=== PATIENT | female | born 1935 | race Caucasian/White ===

== ENCOUNTER 2016-10-11 15:04 | Observation (INO) | payer OTHER ==
--- NOTE | 2016-10-11 15:07 | PDOC ---
History of Present Illness - General History Source: Patient, Family Exam Limitations: No Limitations - History of Present Illness Initial Comments: 10/11/16 15:27 The patient is a 81 year old female on coumadin, with a significant past medical history of hypertension, diabetes, and coronary disease, who presents to the emergency department status post a mechanical fall prior to arrival when she fell over a bag that was on the floor and hit her left forehead and injured her left thumb. She denies headache, nausea, and dizziness. The patient denies chest pain, abdominal pain, shortness of breath, lightheadedness, or palpitation. The patient denies any LOC, fever, chills, cough, visual changes. The patient denies any other bodily pain or injury. Allergies: None PCP: Dr. Steven Porter <Gely Tay - Last Filed: 10/11/16 16:05> <Rashid Forte - Last Filed: 10/11/16 18:48> - General Chief Complaint: Injury Stated Complaint: injury hit head and left wrist Time Seen by Provider: 10/11/16 15:07 Past History <Gely Tay - Last Filed: 10/11/16 16:05> - Past Medical History Anemia: No Asthma: No Cancer: No Cardiac Disorders: Yes (A FIB-CARDIOVERTED LAST YEAR,NOW IN NSR) CVA: No COPD: No CHF: No Dementia: No Diabetes: Yes ([id number], diet-controlled) GI Disorders: Yes Disorders: No HTN: Yes Hypercholesterolemia: No Liver Disease: No Seizures: No Thyroid Disease: No - Surgical History Abdominal Surgery: No Appendectomy: No Cardiac Surgery: No Cholecystectomy: No Lung Surgery: No Neurologic Surgery: No Orthopedic Surgery: No - Psycho/Social/Smoking Cessation Hx Anxiety: No Suicidal Ideation: No Smoking Status: No Smoking History: Never smoked Have you smoked in the past 12 months: No Number of Cigarettes Smoked Daily: 0 Hx Alcohol Use: No Drug/Substance Use Hx: No Substance Use Type: None Hx Substance Use Treatment: No <Rashid Forte - Last Filed: 10/11/16 18:48> - Past Medical History Allergies/Adverse Reactions: Allergies Allergy/AdvReac Type Severity Reaction Status Date / Time No Known Drug Allergies Allergy Verified 10/11/16 15:05 Home Medications: Ambulatory Orders Metformin HCl [Glucophage] 500 mg PO ACDIN 01/18/14 Omeprazole [Prilosec] 20 mg PO ACDIN 01/18/14 Triamterene/Hydrochlorothiazid [Triamterene-Hctz 37.5-25 mg Tb] 37.5 mg PO ACDIN 01/18/14 Cholecalciferol (Vitamin D3) [Vitamin D3] 2,000 unit PO ACDIN 10/22/15 Ferrous Sulfate [Feosol] 325 mg PO ACDIN 10/22/15 Metoprolol Succinate [Toprol XL -] 25 mg PO ACDIN 10/24/15 Coumadin DAILY 10/11/16 Review of Systems - Review of Systems Able to Perform ROS?: Yes Comments:: 10/11/16 15:28 CONSTITUTIONAL: Absent: fever, chills, diaphoresis, generalized weakness, malaise, loss of appetite HEENT: +Headache, +swelling to left side of forehead Absent: rhinorrhea, nasal congestion, throat pain, throat swelling, difficulty swallowing, mouth swelling, ear pain, eye pain, visual Changes CARDIOVASCULAR: Absent: chest pain, syncope, palpitations, irregular heart rate, lightheadedness , peripheral edema RESPIRATORY: Absent: cough, shortness of breath, dyspnea with exertion, orthopnea, wheezing, stridor, hemoptysis GASTROINTESTINAL: Absent: abdominal pain, abdominal distension, nausea, vomiting, diarrhea, constipation, melena, hematochezia GENITOURINARY: Absent: dysuria, frequency, urgency, hesitancy, hematuria, flank pain, genital pain MUSCULOSKELETAL: +left thumb pain Absent: joint swelling SKIN: Absent: rash, itching, pallor HEMATOLOGIC/IMMUNOLOGIC: Absent: easy bleeding, easy bruising, lymphadenopathy, frequent infections ENDOCRINE: Absent: unexplained weight gain, unexplained weight loss, heat intolerance, cold intolerance NEUROLOGIC: Absent: headache, focal weakness or paresthesias, dizziness, unsteady gait, seizure, mental status changes, bladder or bowel incontinence PSYCHIATRIC: Absent: anxiety, depression, suicidal or homicidal ideation, hallucinations. <Gely Tay - Last Filed: 10/11/16 16:05> *Physical Exam - Vital Signs Last Vital Signs Temp Pulse Resp BP Pulse Ox 98 F 77 20 139/77 96 10/11/16 15:04 10/11/16 15:04 10/11/16 15:04 10/11/16 15:04 10/11/16 15:04 - Physical Exam Comments: 10/11/16 15:28 GENERAL: Patient is awake, alert and in no acute distress. Speech is clear and appropriate. HEAD: +Left forehead hematoma, small. Atraumatic and nontender. HEENT: Pupils are equal round and reactive to light, extraocular movements are intact. The tympanic membranes are clear, no hemotympanum. No facial deformity. No facial bone tenderness or step-off. No nasal septal hematoma. The oropharynx is clear. NECK: The trachea is midline, there is no stridor. There is no midline cervical spine tenderness, full range of motion of neck. CHEST: Non-tender, no ecchymosis or abrasions. Equal chest wall expansion bilaterally. No flail segments. Lungs are clear to auscultation bilaterally. CARDIOVASCULAR: S1-S2, regular rate and rhythm. No murmurs or rubs. ABDOMEN: Soft, nontender, nondistended. Bowel sounds are normoactive. There is no abdominal or flank ecchymosis. BACK/PELVIS: There is no midline thoracic or lumbosacral spine tenderness or step-off. Pelvis is stable and nontender. EXTREMITIES: +Mild bony tenderness at the base of the left thumb with full range of motion. There is no extremity deformity or joint swelling. No focal bony tenderness throughout. 2+ distal pulses throughout. NEURO: Alert and oriented x3. Cranial nerves II through XII are intact. 5 out of 5 motor strength x4 extremities. No gross sensory deficits. [id number] is intact. No pronator drift. Gait is stable. SKIN: +Small superficial abrasion at the center of the top lip No hematomas, lacerations. PSYCH: Affect is appropriate <Gely Tay - Last Filed: 10/11/16 16:05> Heart Score/ECG Review - ECG Intrepretation Comment:: 10/11/16 15:37 Normal sinus rhythm at 72, left axis deviation, left ventricular hypertrophy, late R-wave progression, no ST changes <Rashid Forte - Last Filed: 10/11/16 18:48> ED Treatment Course - LABORATORY CBC & Chemistry Diagram: 10/11/16 15:35 10/11/16 15:35 - RADIOLOGY Radiograph Interpretation: 10/11/16 15:54 CT/HEAD CT WITHOUT CONTRAST Reported by: Dr. Gerry Rios Reviewed by: Dr. Rashid Forte Impression: No CT evidence of acute intracranial pathology <Gely Tay - Last Filed: 10/11/16 16:05> - LABORATORY CBC & Chemistry Diagram: 10/11/16 15:35 10/11/16 16:12 <Rashid Forte - Last Filed: 10/11/16 18:48> Medical Decision Making - Medical Decision Making 10/11/16 15:07 The patient is well-appearing and in no acute distress Will obtain CT of the head given her age and Coumadin use in the context of closed head injury Will obtain plain x-rays of the left thumb Will obtain labs <Rashid Forte - Last Filed: 10/11/16 18:48> *DC/Admit/Observation/Transfer - Attestations Scribe Attestion: 10/11/16 15:28 Documentation prepared by FABIOLA Watts, acting as medical records analyst for Rashid Forte MD. <Gely Tay - Last Filed: 10/11/16 16:05> - Discharge Dispostion Admit: Yes <Rashid Forte - Last Filed: 10/11/16 18:48> Diagnosis at time of Disposition: Closed head injury
[2016-10-11] MEDS ORDERED: ACETAMINOPHEN 325 MG TABLET (FP) PO ONE (15:08)
[2016-10-11] MEDS ORDERED: ERYTHROMYCIN 0.5% OPHTHALMIC OINTMENT 3.5 GM TUBE OD ONE (15:27)
[2016-10-11] MEDS ORDERED: ACETAMINOPHEN 325 MG TABLET (FP) ONE (15:37)
[2016-10-11 15:52] LABS: EOSINOPHIL 1.4 % (0-4.5); MCH 25.2 pg (25.7-33.7); MCHC 32.8 g/dl (32.0-36.0); MEAN PLT VOLUME 9.9 fl (7.5-11.1); NEUTROPHILS 65.2 % (42.8-82.8); PLATELET COUNT 225 K/MM3 (134-434); RDW 19.6 % (11.6-15.6); WHITE BLOOD COUNT 7.7 K/mm3 (4.0-10.8)
[2016-10-11 16:06] LABS: ACTIVATED PTT 49.8 SECONDS (24.0-38.9)
[2016-10-11 16:11] LABS: INR 2.6 (0.82-1.09); PROTHROMBIN TIME (PATIENT) 28.6 SEC (10.2-13.0)
[2016-10-11 16:54] LABS: ALBUMIN 3.6 g/dl (3.5-5.0); ALK PHOS 57 U/L (32-92); ANION GAP 8 (8-16); BILIRUBIN,TOTAL 0.7 mg/dl (0.2-1.0); CALCIUM 8.8 mg/dl (8.4-10.2); CO2 26 mmol/L (22-28); COCKROFT - GAULT 65.6795; CREATININE 0.9 mg/dl (0.6-1.3); GLUCOSE,RANDOM 99 mg/dl (74-106); SGOT/AST 29 U/L (10-42); SGPT/ALT 23 U/L (10-40); TOT PROT 7.2 g/dl (6.4-8.3)
[2016-10-11 21:02] VITALS: BMI 33.3
--- NOTE | 2016-10-11 21:52 | HP ---
Admitting History and Physical - Primary Care Physician PCP: Steven Porter - Admission Chief Complaint: Head trauma History of Present Illness: The patient is a 81 year old female on coumadin, with a significant past medical history of hypertension, diabetes, and coronary disease, who presents to the emergency department status post a mechanical fall prior to arrival when she fell over a bag that was on the floor and hit her left forehead and injured her left wrist and both knees. No loss of consciousness. She denies headache, nausea, and dizziness. The patient denies chest pain, abdominal pain, shortness of breath, lightheadedness, or palpitation. History Source: Patient, Family Member - Past Medical History Cardiovascular: Yes: AFIB, HTN, Hyperlipdemia ...LMP Comment: PATIENT IS AN 81 YEAR OLD ...: No - Smoking History Smoking history: Never smoked Have you smoked in the past 12 months: No Aproximately how many cigarettes per day: 0 - Alcohol/Substance Use Hx Alcohol Use: No Home Medications - Allergies Allergies/Adverse Reactions: Allergies Allergy/AdvReac Type Severity Reaction Status Date / Time No Known Drug Allergies Allergy Verified 10/11/16 15:05 - Home Medications Home Medications: Ambulatory Orders Metformin HCl [Glucophage] 500 mg PO DAILY 01/18/14 Omeprazole [Prilosec] 20 mg PO DAILY 01/18/14 Triamterene/Hydrochlorothiazid [Triamterene-Hctz 37.5-25 mg Tb] 37.5 mg PO DAILY 01/18/14 Cholecalciferol (Vitamin D3) [Vitamin D3] 2,000 unit PO DAILY 10/22/15 Ferrous Sulfate [Feosol] 325 mg PO DAILY 10/22/15 Metoprolol Succinate [Toprol XL -] 25 mg PO DAILY 10/24/15 Coumadin 8 mg DAILY 10/11/16 Diltiazem HCl [Cartia Xt] 120 mg PO DAILY 10/11/16 Losartan Potassium 50 mg PO DAILY 10/11/16 Review of Systems - Review of Systems Constitutional: reports: No Symptoms Eyes: reports: No Symptoms HENT: reports: No Symptoms Neck: reports: No Symptoms Cardiovascular: reports: No Symptoms Respiratory: reports: No Symptoms Gastrointestinal: reports: No Symptoms Genitourinary: reports: No Symptoms Musculoskeletal: reports: Joint Pain Neurological: reports: Headache Hematology/Lymphatic: reports: No Symptoms Psychiatric: reports: No Symptoms Physical Examination Vital Signs: Vital Signs Temperature 98.1 F 10/11/16 18:13 Pulse Rate 74 10/11/16 18:13 Respiratory Rate 20 10/11/16 18:13 Blood Pressure 122/68 10/11/16 18:13 O2 Sat by Pulse Oximetry (%) 97 10/11/16 18:13 Constitutional: Yes: Well Nourished, Mild Distress Eyes: Yes: Conjunctiva Clear, EOM Intact, PERRL HENT: Yes: Atraumatic, Normocephalic Neck: Yes: Supple, Trachea Midline Cardiovascular: Yes: Regular Rate and Rhythm Respiratory: Yes: Regular, CTA Bilaterally Gastrointestinal: Yes: Normal Bowel Sounds, Soft ...Rectal Exam: Yes: Deferred Musculoskeletal: Yes: Joint Swelling (left wrist) Edema: No Peripheral Pulses WNL: Yes Neurological: Yes: Alert, Oriented ...Motor Strength: WNL Psychiatric: Yes: Alert, Oriented Imaging - Results Chest X-ray: Report Reviewed X-ray: Report Reviewed Problem List - Problems (1) Closed head injury Code(s): S09.90XA - UNSPECIFIED INJURY OF HEAD, INITIAL ENCOUNTER (2) Atrial fibrillation Code(s): I48.91 - UNSPECIFIED ATRIAL FIBRILLATION (3) Hypertension Code(s): I10 - ESSENTIAL (PRIMARY) HYPERTENSION (4) Hyperlipidemia Code(s): E78.5 - HYPERLIPIDEMIA, UNSPECIFIED Assessment/Plan S/P Fall with trauma to forehead/left wrist joint and b/l Knee joints. CT Head negative for ICH. Given on coumadin will repeat CTh after 24 hrs to make sure there is no ICH. X rays of the wrist - no fracture but given left wrist swelling, will get ortho consult. Pain management and continue current management.
[2016-10-11] MEDS ORDERED: LOPERAMIDE HCL 2 MG CAPSULE PO ONE (22:30)
[2016-10-12] MEDS: ACETAMINOPHEN 325 MG TABLET (FP) PO PRN ×2 (02:51→10:14)
[2016-10-12] MEDS ORDERED: metFORMIN HCL 500 MG TABLET (FP) PO SCH (07:00)
[2016-10-12 08:04] LABS: INR 2.43 (0.82-1.09); PROTHROMBIN TIME (PATIENT) 26.7 SEC (10.2-13.0)
[2016-10-12] MEDS ORDERED: LOSARTAN POTASSIUM 50 MG TABLET (FP) PO SCH (10:00)
[2016-10-12] MEDS ORDERED: TRIAMTERENE AND HCTZ - 37.5 MG/25 MG CAPSULE PO SCH (10:00)
[2016-10-12] MEDS ORDERED: CHOLECALCIFEROL (VITAMIN D3) 1,000 UNIT TABLET (FP) PO SCH (10:00)
[2016-10-12] MEDS ORDERED: FERROUS SO4 325 MG TABLET (FP) PO SCH (10:00)
[2016-10-12] MEDS ORDERED: METOPROLOL SUCCINATE 25 MG TAB.SR.24H (FP) PO SCH (10:00)
[2016-10-12] MEDS ORDERED: PANTOPRAZOLE 20 MG TABLET (FP) PO SCH (10:00)
[2016-10-12] MEDS ORDERED: PT OWN MED DRAWER 7, Y5N ONE (10:04)
--- NOTE | 2016-10-12 21:13 | PN ---
Progress Note (short form) - Note Progress Note: C/O B/L knee pain. Denies headache or blurring of vision. Afebrile. History Source: Patient, Family Member - Past Medical History Cardiovascular: Yes: AFIB, HTN, Hyperlipdemia ...LMP Comment: PATIENT IS AN 81 YEAR OLD ...: No - Smoking History Smoking history: Never smoked Have you smoked in the past 12 months: No Aproximately how many cigarettes per day: 0 - Alcohol/Substance Use Hx Alcohol Use: No Home Medications - Allergies Allergies/Adverse Reactions: Allergies Allergy/AdvReac Type Severity Reaction Status Date / Time No Known Drug Allergies Allergy Verified 10/11/16 15:05 - Home Medications Home Medications: Ambulatory Orders Metformin HCl [Glucophage] 500 mg PO DAILY 01/18/14 Omeprazole [Prilosec] 20 mg PO DAILY 01/18/14 Triamterene/Hydrochlorothiazid [Triamterene-Hctz 37.5-25 mg Tb] 37.5 mg PO DAILY 01/18/14 Cholecalciferol (Vitamin D3) [Vitamin D3] 2,000 unit PO DAILY 10/22/15 Ferrous Sulfate [Feosol] 325 mg PO DAILY 10/22/15 Metoprolol Succinate [Toprol XL -] 25 mg PO DAILY 10/24/15 Coumadin 8 mg DAILY 10/11/16 Diltiazem HCl [Cartia Xt] 120 mg PO DAILY 10/11/16 Losartan Potassium 50 mg PO DAILY 10/11/16 Review of Systems - Review of Systems Constitutional: reports: No Symptoms Eyes: reports: No Symptoms HENT: reports: No Symptoms Neck: reports: No Symptoms Cardiovascular: reports: No Symptoms Respiratory: reports: No Symptoms Gastrointestinal: reports: No Symptoms Genitourinary: reports: No Symptoms Musculoskeletal: reports: Joint Pain Neurological: reports: Headache Hematology/Lymphatic: reports: No Symptoms Psychiatric: reports: No Symptoms Physical Examination Vital Signs: Vital Signs Period Temp Pulse Resp BP Sys/Tucker Pulse Ox Last 24 Hr 97.7 F-98.8 F 62-66 17-19 121-138/60-66 96-97 Constitutional: Yes: Well Nourished, Mild Distress Eyes: Yes: Conjunctiva Clear, EOM Intact, PERRL HENT: Yes: Atraumatic, Normocephalic Neck: Yes: Supple, Trachea Midline Cardiovascular: Yes: Regular Rate and Rhythm Respiratory: Yes: Regular, CTA Bilaterally Gastrointestinal: Yes: Normal Bowel Sounds, Soft ...Rectal Exam: Yes: Deferred Musculoskeletal: Yes: Joint Swelling (left wrist) Edema: No Peripheral Pulses WNL: Yes Neurological: Yes: Alert, Oriented ...Motor Strength: WNL Psychiatric: Yes: Alert, Oriented Imaging - Results Chest X-ray: Report Reviewed X-ray: Report Reviewed CBC, BMP 10/11/16 15:35 10/11/16 16:12 INR, PTT INR 2.43 (0.82-1.09) H 10/12/16 05:30 Problem List - Problems (1) Closed head injury Code(s): S09.90XA - UNSPECIFIED INJURY OF HEAD, INITIAL ENCOUNTER (2) Atrial fibrillation Code(s): I48.91 - UNSPECIFIED ATRIAL FIBRILLATION (3) Hypertension Code(s): I10 - ESSENTIAL (PRIMARY) HYPERTENSION (4) Hyperlipidemia Code(s): E78.5 - HYPERLIPIDEMIA, UNSPECIFIED Assessment/Plan No neuro deficit since yesterday. Seen by ortho. - no fracture. Pain management. Awaiting repeat CTH results. If negative. DC home and follow up with Dr. Porter. Problem List - Problems (1) Closed head injury Code(s): S09.90XA - UNSPECIFIED INJURY OF HEAD, INITIAL ENCOUNTER (2) Atrial fibrillation Code(s): I48.91 - UNSPECIFIED ATRIAL FIBRILLATION (3) Hypertension Code(s): I10 - ESSENTIAL (PRIMARY) HYPERTENSION (4) Hyperlipidemia Code(s): E78.5 - HYPERLIPIDEMIA, UNSPECIFIED
--- NOTE | 2016-10-12 21:17 | DS ---
Physical Examination Vital Signs: Vital Signs Temperature 98.8 F 10/12/16 14:14 Pulse Rate 62 10/12/16 14:14 Respiratory Rate 18 10/12/16 14:14 Blood Pressure 122/60 10/12/16 14:14 O2 Sat by Pulse Oximetry (%) 97 10/12/16 14:14 Constitutional: Yes: Well Nourished, No Distress Eyes: Yes: Conjunctiva Clear, EOM Intact, PERRL HENT: Yes: Atraumatic, Normocephalic Neck: Yes: Supple, Trachea Midline Cardiovascular: Yes: Regular Rate and Rhythm Respiratory: Yes: Regular, CTA Bilaterally Gastrointestinal: Yes: Normal Bowel Sounds, Soft Musculoskeletal: Yes: Back Pain, Joint Stiffness, Joint Swelling Discharge Summary Reason For Visit: CLOSED HEAD INJURY Current Active Problems Atrial fibrillation (Acute) Closed head injury (Acute) Hyperlipidemia (Acute) Hypertension (Acute) Hospital Course: Patient admitted s/p fall with trauma to head, left wrist and b/l knee joints. No LOC. CTH negative for ICH. X rays of the joints negative for fracture. Patient stable to be discharged. To follow up with Dr. love in 2-3 days to have a neuro check. Patient to resume coumadin same dose. Condition: Good - Instructions Disposition: HOME - Home Medications Comprehensive Discharge Medication List: Ambulatory Orders Metformin HCl [Glucophage] 500 mg PO DAILY 01/18/14 Omeprazole [Prilosec] 20 mg PO DAILY 01/18/14 Triamterene/Hydrochlorothiazid [Triamterene-Hctz 37.5-25 mg Tb] 37.5 mg PO DAILY 01/18/14 Cholecalciferol (Vitamin D3) [Vitamin D3] 2,000 unit PO DAILY 10/22/15 Ferrous Sulfate [Feosol] 325 mg PO DAILY 10/22/15 Metoprolol Succinate [Toprol XL -] 25 mg PO DAILY 10/24/15 Coumadin 8 mg DAILY 10/11/16 Diltiazem HCl [Cartia Xt] 120 mg PO DAILY 10/11/16 Losartan Potassium 50 mg PO DAILY 10/11/16
[2016-10-13 06:49] VITALS: BP 96/53; PULSE 77; TEMP 97.8
--- NOTE | 2016-10-14 09:58 | EKG ---
Test Reason : Blood Pressure : / mmHG Vent. Rate : 072 BPM Atrial Rate : 072 BPM P-R Int : 216 ms QRS Dur : 104 ms QT Int : 412 ms P-R-T Axes : 004 -30 -38 degrees QTc Int : 451 ms POOR DATA QUALITY, INTERPRETATION MAY BE ADVERSELY AFFECTED SINUS RHYTHM WITH 1ST DEGREE A-V BLOCK LEFT AXIS DEVIATION MINIMAL VOLTAGE CRITERIA FOR LVH, MAY BE NORMAL VARIANT SEPTAL INFARCT , AGE UNDETERMINED WHEN COMPARED WITH ECG OF 03-SEP-2012 10:03, INVERTED T WAVES HAVE REPLACED NONSPECIFIC T WAVE ABNORMALITY IN INFERIOR LEADS NONSPECIFIC T WAVE ABNORMALITY, IMPROVED IN LATERAL LEADS Confirmed by MD AMERICA, SHELBIE ([id number]) on 10/14/2016 9:58:02 AM Referred By: KIT Confirmed By:SHELBIE CROSS MD
== END 2016-10-12 22:00 | disposition home or self-care (01) ==
LOC: FER 15:04 → FM/S 17:23 → INTOOBSV 17:23 → FM/S 17:32 → UNDOADMOB 17:32 → FER 20:25
PROVIDERS: ADMIT Internal Medicine Geriatric Medicine; ATTEND Internal Medicine Geriatric Medicine
DX: S09.90XA Unspecified injury of head, initial encounter (principal); I48.91 Unspecified atrial fibrillation; I10 Essential (primary) hypertension; E78.5 Hyperlipidemia, unspecified; Z79.01 Long term (current) use of anticoagulants; W01.10XA Fall on same level from slipping, tripping and stumbling with subsequent striking against unspecified object, initial encounter; Y93.01 Activity, walking, marching and hiking; Y92.9 Unspecified place or not applicable
CPT/HCPCS: 36415; 70450-TC; 73110-TC-LT; 73130-TC-LT; 73560-TC-LT; 73560-TC-RT; 80053; 85025; 85610; 85730; 93005; 99283-25; 99285-25; G0378

== ENCOUNTER 2020-06-25 05:44 | Inpatient (IN) | payer OTHER ==
[2020-06-25 08:30] LABS: BASO % 0.7 % (0-2.0); EOS % 0.2 % (0-4.5); HEMATOCRIT 29.5 % (32.4-45.2); HEMOGLOBIN 9.1 GM/dL (10.7-15.3); LYMPH % 16.1 % (8-40); MCH 20.6 pg (25.7-33.7); MCHC 30.9 g/dl (32.0-36.0); MEAN CELL VOLUME 66.8 fl (80-96); MEAN PLT VOLUME 8.8 fl (7.5-11.1); MONO % 3.3 % (3.8-10.2); NEUT % 79.7 % (42.8-82.8); PLATELET COUNT 283 K/MM3 (134-434); RBC 4.42 M/mm3 (3.60-5.2); RDW 20.3 % (11.6-15.6); WHITE BLOOD COUNT 6.3 K/mm3 (4.0-10.0)
[2020-06-25 08:35] LABS: PROTHROMBIN TIME (PATIENT) 52.2 SEC (9.7-13.0)
[2020-06-25 08:38] LABS: CHLORIDE 106 mmol/L (98-107); SODIUM 138 mmol/L (136-145)
[2020-06-25 08:41] LABS: ALBUMIN 3.3 g/dl (3.4-5.0); ANION GAP 8 MMOL/L (8-16); BLOOD UREA NITROGEN 24.6 mg/dL (7-18); CALCIUM 8.5 mg/dL (8.5-10.1); CO2 25 mmol/L (21-32); GLUCOSE,RANDOM 120 mg/dL (74-106); LIPASE 128 U/L (73-393)
[2020-06-25 08:44] LABS: CREATININE 1.2 mg/dL (0.55-1.3); SGOT/AST 28 U/L (15-37); SGPT/ALT 26 U/L (13-61)
[2020-06-25 08:46] LABS: BILIRUBIN,TOTAL 0.8 mg/dL (0.2-1); TOT PROT 7.2 g/dl (6.4-8.2)
[2020-06-25 08:47] LABS: ALK PHOS 71 U/L (45-117)
[2020-06-25 08:48] LABS: N-TERMINAL BNP 18847.9 pg/ml (5-450)
[2020-06-25 09:52] LABS: INR 4.43 (0.83-1.09)
[2020-06-25] MEDS ORDERED: FUROSEMIDE 40 MG/4 ML INJECTABLE VIAL IVPUSH ONE (10:33)
[2020-06-25] MEDS ORDERED: METOPROLOL TARTRATE 5 MG/5 ML VIAL IVPUSH ONE (10:35)
[2020-06-25 11:20] LABS: RETICULOCYTES 1.23 % (0.5-1.5)
[2020-06-25 11:31] LABS: IRON SERUM 19 ug/dL (50-175); TOTAL IRON BINDING CAPACITY 494 ug/dL (250-450)
[2020-06-25 11:58] LABS: ANISOCYTOSIS 1+; OVALOCYTE 1+; TARGET CELLS 1+
[2020-06-25] MEDS: metoPROLOL SUCCINATE 25 MG TAB.SR.24H (FP) PO SCH (22:13)
[2020-06-26 00:48] VITALS: BMI 30.9
[2020-06-26 08:14] LABS: ACTIVATED PTT 39.4 SECONDS (25.2-36.5)
[2020-06-26 08:22] LABS: ALBUMIN 3.1 g/dl (3.4-5.0); BILIRUBIN,TOTAL 0.9 mg/dl (0.2-1); CALCIUM 8.4 mg/dl (8.5-10); CREATININE 1.1 mg/dl (0.55-1.3); MAGNESIUM 1.3 mg/dL (1.8-2.4); PHOSPHOROUS 4.2 mg/dl (2.5-4.9)
[2020-06-26 08:33] LABS: INR 4.96 (0.82-1.09)
[2020-06-26] MEDS: LOSARTAN POTASSIUM 50 MG TABLET PO SCH (09:04)
[2020-06-26] MEDS: metoPROLOL SUCCINATE 25 MG TAB.SR.24H (FP) PO SCH ×2 (09:04→23:00)
[2020-06-26] MEDS: CHOLECALCIFEROL (VIT D3) 1,000 UNIT (25 MCG) TABLET PO SCH (09:04)
[2020-06-26] MEDS: PANTOPRAZOLE 20 MG TABLET PO SCH (09:04)
[2020-06-26] MEDS: FUROSEMIDE 40 MG/4 ML INJECTABLE VIAL IVPUSH SCH (09:04)
[2020-06-26 09:13] LABS: HEMATOCRIT 29.8 % (32.4-45.2); MCH 20.8 pg (25.7-33.7); MCHC 30.4 g/dl (32.0-36.0); MEAN CELL VOLUME 68.4 fl (80-96); MEAN PLT VOLUME 8.2 fl (7.5-11.1); PLATELET COUNT 242 K/MM3 (134-434); RBC 4.35 M/mm3 (3.60-5.2); RDW 19.1 % (11.6-15.6); WHITE BLOOD COUNT 5.3 K/mm3 (4.0-10.8)
[2020-06-26 09:17] LABS: ADD RBC MORPHOLOGY YES
[2020-06-26] MEDS ORDERED: MAGNESIUM SULF 50% (8.12 MEQ/2 ML-1 GM VIAL) IVPB ONE (09:28)
[2020-06-26] MEDS ORDERED: POTASSIUM CHLORIDE TABS 20 MEQ TABLET.ER (FP) PO ONE (09:30)
[2020-06-26] MEDS ORDERED: MAGNESIUM SULFATE IN WATER 2 GM/50 ML IVPB IVPB ONE (09:45)
[2020-06-26 09:54] LABS: ANISOCYTOSIS 2+; PLATELET ESTIMATE ADEQUATE; TARGET CELLS 1+
[2020-06-26] MEDS ORDERED: metoPROLOL SUCCINATE 25 MG TAB.SR.24H (FP) PO SCH (10:00)
[2020-06-26] MEDS: INSULIN SLIDING SCALE (NOVOLOG) 1 VIAL SQ SCH (23:00)
[2020-06-27 08:20] LABS: BASO % 0.3 % (0-2.0); EOS % 2.4 % (0-4.5); HEMATOCRIT 30.9 % (32.4-45.2); HEMOGLOBIN 9.5 GM/dl (10.7-15.3); LYMPH % 28.1 % (8-40); MCH 20.9 pg (25.7-33.7); MCHC 30.7 g/dl (32.0-36.0); MEAN CELL VOLUME 68.2 fl (80-96); MEAN PLT VOLUME 9.2 fl (7.5-11.1); NEUT % 60.2 % (42.8-82.8); PLATELET COUNT 258 K/MM3 (134-434); RBC 4.53 M/mm3 (3.60-5.2); RDW 19.1 % (11.6-15.6); WHITE BLOOD COUNT 5.4 K/mm3 (4.0-10.8)
[2020-06-27 08:29] LABS: ALBUMIN 3.2 g/dl (3.4-5.0); BILIRUBIN,TOTAL 1.1 mg/dl (0.2-1); CALCIUM 8.5 mg/dl (8.5-10); CREATININE 1.1 mg/dl (0.55-1.3); MAGNESIUM 1.5 mg/dL (1.8-2.4); TOT PROT 6.3 g/dl (6.4-8.2)
[2020-06-27] MEDS: PANTOPRAZOLE 20 MG TABLET PO SCH (10:53)
[2020-06-27] MEDS: CHOLECALCIFEROL (VIT D3) 1,000 UNIT (25 MCG) TABLET PO SCH (10:53)
[2020-06-27] MEDS: metoPROLOL SUCCINATE 25 MG TAB.SR.24H (FP) PO SCH ×2 (10:53→21:16)
[2020-06-27] MEDS: LOSARTAN POTASSIUM 50 MG TABLET PO SCH (10:53)
[2020-06-27] MEDS: FUROSEMIDE 40 MG/4 ML INJECTABLE VIAL IVPUSH SCH (10:54)
[2020-06-27 11:43] LABS: INR 3.46 (0.82-1.09); PROTHROMBIN TIME (PATIENT) 35.7 SEC (10.2-13.0)
[2020-06-27] MEDS ORDERED: MAGNESIUM SULF 50% (8.12 MEQ/2 ML-1 GM VIAL) IVPB ONE (13:39)
[2020-06-27] MEDS ORDERED: MAGNESIUM SULFATE IN WATER 2 GM/50 ML IVPB IVPB ONE (14:15)
[2020-06-27] MEDS: INSULIN SLIDING SCALE (NOVOLOG) 1 VIAL SQ SCH ×2 (15:10→22:35)
[2020-06-28] MEDS: INSULIN SLIDING SCALE (NOVOLOG) 1 VIAL SQ SCH ×4 (06:35→21:17)
[2020-06-28 08:58] LABS: INR 2.16 (0.82-1.09)
[2020-06-28 09:00] LABS: CALCIUM 9.1 mg/dl (8.5-10); MAGNESIUM 1.4 mg/dL (1.8-2.4)
[2020-06-28] MEDS: FUROSEMIDE 40 MG/4 ML INJECTABLE VIAL IVPUSH SCH (09:18)
[2020-06-28] MEDS: CHOLECALCIFEROL (VIT D3) 1,000 UNIT (25 MCG) TABLET PO SCH (09:19)
[2020-06-28] MEDS: PANTOPRAZOLE 20 MG TABLET PO SCH (09:19)
[2020-06-28] MEDS: metoPROLOL SUCCINATE 25 MG TAB.SR.24H (FP) PO SCH (09:19)
[2020-06-28] MEDS: LOSARTAN POTASSIUM 50 MG TABLET PO SCH (09:19)
[2020-06-28] MEDS: POLYETHYLENE GLYCOL 3350 119 GM BTL PO SCH ×2 (09:20→21:25)
[2020-06-28] MEDS ORDERED: PATIENT'S OWN MEDICATION (NON-FORMULARY) (Warfarin Sodium [Warfarin Sodium] 4 MG Tablet) PO SCH (10:30)
[2020-06-28] MEDS: MAGNESIUM OXIDE 400 MG TABLET (FP) PO SCH ×2 (11:51→21:17)
[2020-06-28] MEDS ORDERED: WARFARIN NA 5 MG, WARFARIN NA 3 MG PO SCH (18:00)
[2020-06-28] MEDS ORDERED: WARFARIN NA 5 MG TABLET PO SCH (18:00)
[2020-06-28] MEDS ORDERED: POTASSIUM CHLORIDE TABS 20 MEQ TABLET.ER (FP) PO ONE ×2 (22:22→22:45)
[2020-06-29] MEDS: INSULIN SLIDING SCALE (NOVOLOG) 1 VIAL SQ SCH ×4 (06:22→21:12)
[2020-06-29 08:01] LABS: BASO % 0.1 % (0-2.0); HEMATOCRIT 30.6 % (32.4-45.2); HEMOGLOBIN 9.3 GM/dl (10.7-15.3); LYMPH % 24.4 % (8-40); MCH 20.8 pg (25.7-33.7); MCHC 30.5 g/dl (32.0-36.0); MEAN CELL VOLUME 68.2 fl (80-96); MEAN PLT VOLUME 8.5 fl (7.5-11.1); MONO % 8.7 % (3.8-10.2); NEUT % 64.8 % (42.8-82.8); PLATELET COUNT 231 K/MM3 (134-434); RBC 4.49 M/mm3 (3.60-5.2); WHITE BLOOD COUNT 5.8 K/mm3 (4.0-10.8)
[2020-06-29 08:11] LABS: ADD RBC MORPHOLOGY YES
[2020-06-29 08:17] LABS: ALBUMIN 3.1 g/dl (3.4-5.0); CALCIUM 8.3 mg/dl (8.5-10); CREATININE 0.9 mg/dl (0.55-1.3); MAGNESIUM 1.4 mg/dL (1.8-2.4); TOT PROT 6.2 g/dl (6.4-8.2)
[2020-06-29 08:32] LABS: INR 1.65 (0.82-1.09); PROTHROMBIN TIME (PATIENT) 17.9 SEC (10.2-13.0)
[2020-06-29] MEDS: PANTOPRAZOLE 20 MG TABLET PO SCH (09:31)
[2020-06-29] MEDS: FUROSEMIDE 40 MG/4 ML INJECTABLE VIAL IVPUSH SCH (09:31)
[2020-06-29] MEDS: MAGNESIUM OXIDE 400 MG TABLET (FP) PO SCH (09:31)
[2020-06-29] MEDS: POLYETHYLENE GLYCOL 3350 119 GM BTL PO SCH ×2 (09:31→21:09)
[2020-06-29] MEDS: CHOLECALCIFEROL (VIT D3) 1,000 UNIT (25 MCG) TABLET PO SCH (09:31)
[2020-06-29 09:56] LABS: ANISOCYTOSIS 1+
[2020-06-29] MEDS ORDERED: POTASSIUM CHLORIDE TABS 20 MEQ TABLET.ER (FP) PO ONE (11:45)
[2020-06-29] MEDS: MAGNESIUM 2GM/50ML STERILE WATER IVPB IVPB SCH ×2 (14:01→16:00)
[2020-06-29] MEDS ORDERED: WARFARIN NA 5 MG, WARFARIN NA 3 MG PO SCH (18:00)
[2020-06-29] MEDS ORDERED: WARFARIN NA 2 MG TABLET PO SCH (18:00)
[2020-06-29] MEDS ORDERED: WARFARIN NA 5 MG TABLET PO SCH (18:00)
[2020-06-29] MEDS ORDERED: WARFARIN NA 5 MG TABLET ONE (18:18)
[2020-06-29] MEDS ORDERED: WARFARIN NA 3 MG TABLET ONE (18:18)
[2020-06-30] MEDS ORDERED: FUROSEMIDE 40 MG TABLET (FP) PO SCH (06:00)
[2020-06-30] MEDS: INSULIN SLIDING SCALE (NOVOLOG) 1 VIAL SQ SCH ×2 (06:10→12:41)
[2020-06-30 06:14] VITALS: BP 116/72; PULSE 69; TEMP 97.9
[2020-06-30 08:26] LABS: BASO % 1.2 % (0-2.0); HEMATOCRIT 30.7 % (32.4-45.2); HEMOGLOBIN 9.4 GM/dl (10.7-15.3); LYMPH % 21.2 % (8-40); MCH 20.6 pg (25.7-33.7); MCHC 30.6 g/dl (32.0-36.0); MEAN CELL VOLUME 67.3 fl (80-96); MEAN PLT VOLUME 8.4 fl (7.5-11.1); MONO % 7.4 % (3.8-10.2); NEUT % 67.2 % (42.8-82.8); PLATELET COUNT 226 K/MM3 (134-434); RBC 4.57 M/mm3 (3.60-5.2); RDW 19.2 % (11.6-15.6); WHITE BLOOD COUNT 5.7 K/mm3 (4.0-10.8)
[2020-06-30 08:41] LABS: ALBUMIN 3.2 g/dl (3.4-5.0); CALCIUM 8.5 mg/dl (8.5-10); MAGNESIUM 2.3 mg/dL (1.8-2.4); TOT PROT 6.3 g/dl (6.4-8.2)
[2020-06-30 08:49] LABS: INR 1.43 (0.82-1.09); PROTHROMBIN TIME (PATIENT) 15.6 SEC (10.2-13.0)
[2020-06-30] MEDS: CHOLECALCIFEROL (VIT D3) 1,000 UNIT (25 MCG) TABLET PO SCH (09:54)
[2020-06-30] MEDS: PANTOPRAZOLE 20 MG TABLET PO SCH (09:55)
[2020-06-30] MEDS: POLYETHYLENE GLYCOL 3350 119 GM BTL PO SCH (09:56)
== END 2020-06-30 13:00 | disposition home or self-care (01) | DRG 292 ==
LOC: JER 05:44 → JERBED 09:31 → FM/S 21:25
PROVIDERS: ATTEND Nurse Practitioner Family
DX: I11.0 Hypertensive heart disease with heart failure (principal); I47.2 Ventricular tachycardia; D50.9 Iron deficiency anemia, unspecified; I50.23 Acute on chronic systolic (congestive) heart failure; I48.91 Unspecified atrial fibrillation; I25.10 Atherosclerotic heart disease of native coronary artery without angina pectoris; E78.5 Hyperlipidemia, unspecified; E11.9 Type 2 diabetes mellitus without complications; E83.42 Hypomagnesemia; I27.20 Pulmonary hypertension, unspecified; I42.9 Cardiomyopathy, unspecified; K21.9 Gastro-esophageal reflux disease without esophagitis; E87.6 Hypokalemia
CPT/HCPCS: 36415; 71045-TC-FY; 73610-TC-LT-FY; 73630-TC-LT; 80048; 80053; 82272; 82550; 82728; 82962; 83540; 83550; 83615; 83690; 83735; 83880; 84100; 84443; 84484; 85025; 85045; 85610; 85730; 86140; 93005; 93010; 93306-TC; 99285-25; C9803; U0003

== ENCOUNTER 2020-08-27 09:06 | Emergency (ER) | payer OTHER ==
[2020-08-27 09:44] VITALS: TEMP 98; BMI 29.9
[2020-08-27 10:43] LABS: BASO % 0.4 % (0-2.0); HEMOGLOBIN 9.7 GM/dl (10.7-15.3); MCH 21.6 pg (25.7-33.7)
[2020-08-27 10:50] LABS: HEMATOCRIT 31.9 % (32.4-45.2); LYMPH % 15.8 % (8-40); MCHC 30.5 g/dl (32.0-36.0); MEAN PLT VOLUME 9.3 fl (7.5-11.1); MONO % 7.3 % (3.8-10.2); NEUT % 74.5 % (42.8-82.8); PLATELET COUNT 260 K/MM3 (134-434); RDW 23.8 % (11.6-15.6); WHITE BLOOD COUNT 5.8 K/mm3 (4.0-10.8)
[2020-08-27 10:52] LABS: ADD RBC MORPHOLOGY YES
[2020-08-27 10:52] LABS: INR 2.67 (0.82-1.09)
[2020-08-27 10:55] LABS: ALBUMIN 3.1 g/dl (3.4-5.0); CALCIUM 8.6 mg/dl (8.5-10); MAGNESIUM 1.2 mg/dL (1.8-2.4); POTASSIUM 3.3 mmol/L (3.5-5.1); TOT PROT 6.4 g/dl (6.4-8.2)
[2020-08-27] MEDS ORDERED: MAGNESIUM SULF 50% (8.12 MEQ/2 ML-1 GM VIAL) IVPB ONE (11:00)
[2020-08-27] MEDS ORDERED: POTASSIUM CHLORIDE TABS 20 MEQ TABLET.ER (FP) PO ONE ×2 (11:00→11:17)
[2020-08-27] MEDS ORDERED: MAGNESIUM SULF 50% (8.12 MEQ/2 ML-1 GM VIAL) ONE (11:17)
[2020-08-27 12:15] LABS: N-TERMINAL BNP 19186.8 pg/ml (5-450)
[2020-08-27 12:18] LABS: VENOUS BASE EXCESS 4.1 mmol/L (-2-2); VENOUS O2 SATURATION 69.8 % (70-80); VENOUS PCO2 48.4 mmHg (38-52); VENOUS PH 7.404 (7.310-7.410)
[2020-08-27 12:28] VITALS: BP 115/74; PULSE 94
[2020-08-27] MEDS ORDERED: FUROSEMIDE 40 MG/4 ML INJECTABLE VIAL IVPUSH ONE (13:18)
[2020-08-27] MEDS ORDERED: FUROSEMIDE 40 MG/4 ML INJECTABLE VIAL ONE (13:22)
[2020-08-27 13:51] LABS: ANISOCYTOSIS 1+
== END 2020-08-27 16:02 | disposition home or self-care (01) ==
LOC: FER 09:06
PROC: 3E033NZ Introduction of Analgesics, Hypnotics, Sedatives into Peripheral Vein, Percutaneous Approach (ICD-10-PCS; principal; 2020-08-27)
PROC: 3E033GC Introduction of Other Therapeutic Substance into Peripheral Vein, Percutaneous Approach (ICD-10-PCS; 2020-08-27)
DX: R06.02 Shortness of breath (principal); I50.9 Heart failure, unspecified
CPT/HCPCS: 36415; 71046-TC-FY; 80053; 82550; 82803; 83735; 83880; 84484; 85025; 85610; 93005; 99285-25

== ENCOUNTER 2020-10-13 18:06 | Emergency (ER) | payer OTHER ==
[2020-10-13 18:23] VITALS: BP 124/65; PULSE 89; TEMP 97.8; BMI 27.8
[2020-10-13 20:05] LABS: INR 2.44 (0.82-1.09); PROTHROMBIN TIME (PATIENT) 25.8 SEC (10.2-13.0)
== END 2020-10-13 20:15 | disposition home or self-care (01) ==
LOC: FER 18:06
DX: M25.562 Pain in left knee (principal)
CPT/HCPCS: 36415; 85610; 93971-TC; 99284-25

== ENCOUNTER 2020-10-31 08:22 | Inpatient (IN) | payer OTHER ==
[2020-10-31 09:30] LABS: ACTIVATED PTT 40.6 SECONDS (25.2-36.5)
[2020-10-31 09:34] LABS: INR 5.26 (0.82-1.09); PROTHROMBIN TIME (PATIENT) 52.8 SEC (10.2-13.0)
[2020-10-31 09:34] LABS: BASO % 2.4 % (0-2.0); EOS % 0.1 % (0-4.5); HEMATOCRIT 33.9 % (32.4-45.2); HEMOGLOBIN 10.4 GM/dl (10.7-15.3); LYMPH % 14.6 % (8-40); MCH 21.9 pg (25.7-33.7); MCHC 30.9 g/dl (32.0-36.0); MEAN CELL VOLUME 70.8 fl (80-96); MEAN PLT VOLUME 9.6 fl (7.5-11.1); MONO % 3.9 % (3.8-10.2); PLATELET COUNT 284 K/MM3 (134-434); RBC 4.78 M/mm3 (3.60-5.2); RDW 20.7 % (11.6-15.6)
[2020-10-31 09:35] LABS: ALBUMIN 3.4 g/dl (3.4-5.0); ALK PHOS 72 U/L (45-117); ANION GAP 8 MMOL/L (8-16); BILIRUBIN,TOTAL 0.8 mg/dl (0.2-1); CHLORIDE 108 mmol/L (98-107); CO2 21 mmol/L (21-32); CREATININE 0.9 mg/dl (0.55-1.3); GLUCOSE,RANDOM 130 mg/dl (74-106); MAGNESIUM 1.5 mg/dL (1.8-2.4); SGOT/AST 43 U/L (15-37); SGPT/ALT 25 U/L (13-61); SODIUM 137 mmol/L (136-145); TOT PROT 7.2 g/dl (6.4-8.2)
[2020-10-31 09:36] LABS: ADD RBC MORPHOLOGY YES
[2020-10-31] MEDS ORDERED: MAGNESIUM SULF 50% (8.12 MEQ/2 ML-1 GM VIAL) IVPB ONE (09:49)
[2020-10-31] MEDS ORDERED: MAGNESIUM 1GM/D5W - 2 GM/200 ML IVPB IVPB ONE (09:55)
[2020-10-31] MEDS ORDERED: FUROSEMIDE 40 MG/4 ML INJECTABLE VIAL IVPUSH ONE (10:09)
[2020-10-31] MEDS ORDERED: FUROSEMIDE 40 MG/4 ML INJECTABLE VIAL ONE (10:10)
[2020-10-31 10:30] LABS: ANISOCYTOSIS 3+
[2020-10-31 10:31] LABS: PLATELET ESTIMATE ADEQUATE
[2020-10-31 10:40] LABS: N-TERMINAL BNP 17389.4 pg/ml (5-450)
[2020-10-31 14:29] VITALS: BMI 28.7
[2020-10-31] MEDS: INSULIN (NOVOLOG) ASPART 100 UNITS/ML 10ML VIAL SQ SCH ×2 (16:50→22:58)
[2020-11-01] MEDS: INSULIN (NOVOLOG) ASPART 100 UNITS/ML 10ML VIAL SQ SCH ×4 (07:11→21:55)
[2020-11-01 08:21] LABS: ALBUMIN 3.1 g/dl (3.4-5.0); BILIRUBIN,TOTAL 0.8 mg/dl (0.2-1); CALCIUM 8.8 mg/dl (8.5-10); CREATININE 0.9 mg/dl (0.55-1.3); MAGNESIUM 1.7 mg/dL (1.8-2.4); TOT PROT 6.4 g/dl (6.4-8.2)
[2020-11-01 08:25] LABS: BASO % 0.5 % (0-2.0); EOS % 2.3 % (0-4.5); HEMATOCRIT 32.1 % (32.4-45.2); HEMOGLOBIN 9.9 GM/dl (10.7-15.3); MCH 22.1 pg (25.7-33.7); MCHC 30.9 g/dl (32.0-36.0); MEAN CELL VOLUME 71.4 fl (80-96); MEAN PLT VOLUME 9.3 fl (7.5-11.1); MONO % 8.8 % (3.8-10.2); NEUT % 67.4 % (42.8-82.8); PLATELET COUNT 249 K/MM3 (134-434); RBC 4.49 M/mm3 (3.60-5.2); RDW 20.9 % (11.6-15.6); WHITE BLOOD COUNT 5.4 K/mm3 (4.0-10.8)
[2020-11-01] MEDS: ENOXAPARIN NA (PORCINE) 40 MG/0.4 ML DISP.SYRIN SQ SCH (09:30)
[2020-11-01] MEDS: FUROSEMIDE 40 MG/4 ML INJECTABLE VIAL IVPUSH SCH (09:30)
[2020-11-01] MEDS: PANTOPRAZOLE 20 MG TABLET PO SCH (09:31)
[2020-11-01] MEDS ORDERED: MAGNESIUM SULF 50% (8.12 MEQ/2 ML-1 GM VIAL) IVPB ONE (09:55)
[2020-11-01] MEDS ORDERED: PATIENT'S OWN MEDICATION (NON-FORMULARY) (Omeprazole Pediatric Solution 20 MG Capsule.Dr) PO SCH (10:00)
[2020-11-01] MEDS ORDERED: MAGNESIUM SULFATE IN WATER 2 GM/50 ML IVPB IVPB ONE (10:15)
[2020-11-01 11:13] LABS: INR 4.81 (0.82-1.09); PROTHROMBIN TIME (PATIENT) 48.6 SEC (10.2-13.0)
[2020-11-01] MEDS ORDERED: FERROUS SO4 325 MG TABLET (FP) PO SCH (12:15)
[2020-11-01] MEDS ORDERED: cefTRIAXone SODIUM 1 GM VIAL ONE (14:39)
[2020-11-01] MEDS ORDERED: DEXTROSE 5%-WATER - 50 ML IVPB ONE (14:39)
[2020-11-01] MEDS ORDERED: CEFTRIAXONE 1 GM in SODIUM CHLORIDE 50 ML IVPB SCH (14:43)
[2020-11-01] MEDS ORDERED: AZITHROMYCIN IVPB 500 MG in SODIUM CHLORIDE 250 ML IVPB ONE (14:45)
[2020-11-01] MEDS: AZITHROMYCIN IVPB 500 MG/250 ML BAG IVPB ONE ×2 (14:46→14:47)
[2020-11-01] MEDS: CEFTRIAXONE 1 GM in DEXTROSE 5%-WATER - 50 ML IVPB SCH ×2 (14:47→14:54)
[2020-11-01] MEDS: CEFTRIAXONE 1 GM in SODIUM CHLORIDE 50 ML IVPB SCH (14:52)
[2020-11-01] MEDS: FERROUS SO4 325 MG TABLET (FP) PO SCH (21:56)
[2020-11-02] MEDS: INSULIN (NOVOLOG) ASPART 100 UNITS/ML 10ML VIAL SQ SCH ×3 (06:28→21:51)
[2020-11-02] MEDS ORDERED: cefTRIAXone SODIUM 1 GM VIAL ONE (08:51)
[2020-11-02] MEDS ORDERED: SODIUM CHLORIDE 50 ML IVPB ONE (08:51)
[2020-11-02] MEDS: PANTOPRAZOLE 20 MG TABLET PO SCH (09:05)
[2020-11-02] MEDS: FUROSEMIDE 40 MG/4 ML INJECTABLE VIAL IVPUSH SCH (09:05)
[2020-11-02] MEDS: FERROUS SO4 325 MG TABLET (FP) PO SCH ×2 (09:05→16:42)
[2020-11-02] MEDS: CEFTRIAXONE 1 GM in SODIUM CHLORIDE 50 ML IVPB SCH (09:05)
[2020-11-02] MEDS: ENOXAPARIN NA (PORCINE) 40 MG/0.4 ML DISP.SYRIN SQ SCH (09:06)
[2020-11-02] MEDS ORDERED: AZITHROMYCIN IVPB 250 MG in SODIUM CHLORIDE 250 ML IVPB SCH (10:00)
[2020-11-02 10:36] LABS: INR 3.35 (0.82-1.09); PROTHROMBIN TIME (PATIENT) 34.7 SEC (10.2-13.0)
[2020-11-02 10:39] LABS: CALCIUM 8.5 mg/dl (8.5-10); MAGNESIUM 1.9 mg/dL (1.8-2.4)
[2020-11-03] MEDS: INSULIN (NOVOLOG) ASPART 100 UNITS/ML 10ML VIAL SQ SCH (06:36)
[2020-11-03] MEDS: FERROUS SO4 325 MG TABLET (FP) PO SCH (08:23)
[2020-11-03 08:26] LABS: INR 2.59 (0.82-1.09); PROTHROMBIN TIME (PATIENT) 27.3 SEC (10.2-13.0)
[2020-11-03] MEDS ORDERED: cefTRIAXone SODIUM 1 GM VIAL ONE (09:10)
[2020-11-03] MEDS ORDERED: PT OWN MED DRAWER 7, Y5N ONE (09:10)
[2020-11-03] MEDS ORDERED: SODIUM CHLORIDE 50 ML IVPB ONE (09:11)
[2020-11-03] MEDS: ENOXAPARIN NA (PORCINE) 40 MG/0.4 ML DISP.SYRIN SQ SCH (09:26)
[2020-11-03] MEDS: CEFTRIAXONE 1 GM in SODIUM CHLORIDE 50 ML IVPB SCH (09:26)
[2020-11-03] MEDS: PANTOPRAZOLE 20 MG TABLET PO SCH (09:26)
[2020-11-03] MEDS ORDERED: FUROSEMIDE 40 MG TABLET (FP) PO SCH (10:00)
[2020-11-03 10:15] VITALS: BP 106/77; PULSE 85; TEMP 98
== END 2020-11-03 10:19 | disposition home or self-care (01) | DRG 291 ==
LOC: FER 08:22 → FM/S 13:19
PROVIDERS: ADMIT Internal Medicine; ATTEND Nurse Practitioner Acute Care
DX: I11.0 Hypertensive heart disease with heart failure (principal); I50.23 Acute on chronic systolic (congestive) heart failure; J18.9 Pneumonia, unspecified organism; I47.2 Ventricular tachycardia; I25.10 Atherosclerotic heart disease of native coronary artery without angina pectoris; K21.9 Gastro-esophageal reflux disease without esophagitis; K64.9 Unspecified hemorrhoids; J44.9 Chronic obstructive pulmonary disease, unspecified; E78.5 Hyperlipidemia, unspecified; E83.42 Hypomagnesemia; I48.0 Paroxysmal atrial fibrillation; E11.51 Type 2 diabetes mellitus with diabetic peripheral angiopathy without gangrene; Z79.01 Long term (current) use of anticoagulants
CPT/HCPCS: 36415; 71045-TC-FY; 71250-TC; 80048; 80053; 82550; 82962; 83540; 83550; 83735; 83880; 84443; 84484; 85025; 85610; 85730; 93005; 97116-GP; 97162-GP; 99285-25; C9803; U0003; U0005

== ENCOUNTER 2020-11-21 09:59 | Inpatient (IN) | payer OTHER ==
[2020-11-21 11:04] LABS: ACTIVATED PTT 31.5 SECONDS (25.2-36.5)
[2020-11-21 11:06] LABS: EOS % 0.1 % (0-4.5)
[2020-11-21 11:07] LABS: ALBUMIN 3.3 g/dl (3.4-5.0); ALK PHOS 77 U/L (45-117); ANION GAP 9 MMOL/L (8-16); BILIRUBIN,TOTAL 0.9 mg/dl (0.2-1); CALCIUM 8.9 mg/dl (8.5-10); CHLORIDE 104 mmol/L (98-107); CO2 28 mmol/L (21-32); GLUCOSE,RANDOM 125 mg/dl (74-106); SGOT/AST 31 U/L (15-37); SGPT/ALT 25 U/L (13-61); SODIUM 141 mmol/L (136-145)
[2020-11-21 11:08] LABS: BASO % 0.9 % (0-2.0); HEMATOCRIT 35.1 % (32.4-45.2); HEMOGLOBIN 10.9 GM/dl (10.7-15.3); INR 2.28 (0.82-1.09); LYMPH % 14.8 % (8-40); MCH 22.6 pg (25.7-33.7); MCHC 30.9 g/dl (32.0-36.0); MEAN CELL VOLUME 73.2 fl (80-96); MEAN PLT VOLUME 9.3 fl (7.5-11.1); MONO % 7.1 % (3.8-10.2); NEUT % 77.1 % (42.8-82.8); PLATELET COUNT 253 K/MM3 (134-434); PROTHROMBIN TIME (PATIENT) 24.2 SEC (10.2-13.0); RDW 24.3 % (11.6-15.6); WHITE BLOOD COUNT 6.1 K/mm3 (4.0-10.8)
[2020-11-21 11:14] LABS: ADD RBC MORPHOLOGY YES
[2020-11-21] MEDS ORDERED: METOPROLOL TARTRATE 5 MG/5 ML VIAL IVPUSH ONE (11:25)
[2020-11-21] MEDS ORDERED: METOPROLOL TARTRATE 5 MG/5 ML VIAL ONE (11:48)
[2020-11-21] MEDS ORDERED: ACETAMINOPHEN 325 MG TABLET (FP) PO ONE (11:55)
[2020-11-21 11:56] LABS: ANISOCYTOSIS 2+; PLATELET ESTIMATE ADEQUATE
[2020-11-21] MEDS ORDERED: ACETAMINOPHEN 325 MG TABLET (FP) ONE (12:10)
[2020-11-21] MEDS ORDERED: FUROSEMIDE 40 MG/4 ML INJECTABLE VIAL IVPUSH ONE (13:43)
[2020-11-21] MEDS ORDERED: FUROSEMIDE 40 MG/4 ML INJECTABLE VIAL ONE (13:49)
[2020-11-21 14:52] LABS: EPITHELIAL CELLS FEW /hpf
[2020-11-21] MEDS ORDERED: METOPROLOL TARTRATE 50 MG TABLET (FP) PO ONE (15:09)
[2020-11-21] MEDS ORDERED: PATIENT'S OWN MEDICATION (NON-FORMULARY) (Warfarin Sodium [Warfarin Sodium] 4 MG Tablet) PO SCH (17:00)
[2020-11-21 17:13] VITALS: BMI 29.0
[2020-11-21] MEDS ORDERED: WARFARIN NA 5 MG TABLET ONE (17:22)
[2020-11-21] MEDS ORDERED: WARFARIN NA 3 MG TABLET ONE (17:22)
[2020-11-21] MEDS: FERROUS SO4 325 MG TABLET (FP) PO SCH (17:25)
[2020-11-21] MEDS: WARFARIN NA 3 MG, WARFARIN NA 5 MG PO SCH (17:25)
[2020-11-21] MEDS: INSULIN SLIDING SCALE (NOVOLOG) 1 VIAL SQ SCH (21:11)
[2020-11-21 22:15] LABS: BILIRUBIN,TOTAL 1.3 mg/dl (0.2-1); CALCIUM 8.4 mg/dl (8.5-10); TOT PROT 6.3 g/dl (6.4-8.2)
[2020-11-21 23:07] LABS: MAGNESIUM 1.5 mg/dL (1.8-2.4)
[2020-11-21] MEDS ORDERED: POTASSIUM CHLORIDE 20 MEQ PREMIX IVPB 100 ML IVPB ONE (23:45)
[2020-11-21] MEDS ORDERED: MAGNESIUM 1GM/D5W - 2 GM/200 ML IVPB IVPB ONE (23:45)
[2020-11-21] MEDS: POTASSIUM CHLORIDE 10 MEQ PREMIX IVPB (POTASSIUM RIDER) IVPB SCH (23:56)
[2020-11-22] MEDS: POTASSIUM CHLORIDE 10 MEQ PREMIX IVPB (POTASSIUM RIDER) IVPB SCH (02:10)
[2020-11-22] MEDS ORDERED: MAGNESIUM SULF 50% (8.12 MEQ/2 ML-1 GM VIAL) ONE (05:31)
[2020-11-22] MEDS: INSULIN SLIDING SCALE (NOVOLOG) 1 VIAL SQ SCH ×4 (06:17→21:10)
[2020-11-22 07:53] LABS: BASO % 0.7 % (0-2.0); HEMATOCRIT 31.9 % (32.4-45.2); HEMOGLOBIN 9.7 GM/dl (10.7-15.3); LYMPH % 23.9 % (8-40); MCHC 30.5 g/dl (32.0-36.0); MEAN CELL VOLUME 72.1 fl (80-96); MEAN PLT VOLUME 9.3 fl (7.5-11.1); MONO % 6.6 % (3.8-10.2); NEUT % 66.8 % (42.8-82.8); PLATELET COUNT 228 K/MM3 (134-434); RBC 4.42 M/mm3 (3.60-5.2); RDW 23.7 % (11.6-15.6); WHITE BLOOD COUNT 4.8 K/mm3 (4.0-10.8)
[2020-11-22 07:59] LABS: INR 2.47 (0.82-1.09); PROTHROMBIN TIME (PATIENT) 26.1 SEC (10.2-13.0)
[2020-11-22 08:03] LABS: ALBUMIN 2.8 g/dl (3.4-5.0); CALCIUM 8.4 mg/dl (8.5-10); CREATININE 0.9 mg/dl (0.55-1.3); MAGNESIUM 2.1 mg/dL (1.8-2.4)
[2020-11-22] MEDS: FERROUS SO4 325 MG TABLET (FP) PO SCH ×2 (08:24→17:22)
[2020-11-22] MEDS: PANTOPRAZOLE 20 MG TABLET PO SCH (09:12)
[2020-11-22] MEDS: FUROSEMIDE 40 MG TABLET (FP) PO SCH (09:13)
[2020-11-22] MEDS: WARFARIN NA 2 MG TABLET PO SCH (17:22)
[2020-11-23] MEDS: INSULIN SLIDING SCALE (NOVOLOG) 1 VIAL SQ SCH ×4 (06:34→21:26)
[2020-11-23] MEDS: PANTOPRAZOLE 20 MG TABLET PO SCH (09:25)
[2020-11-23] MEDS: FERROUS SO4 325 MG TABLET (FP) PO SCH ×2 (09:25→16:52)
[2020-11-23] MEDS: FUROSEMIDE 40 MG TABLET (FP) PO SCH (09:26)
[2020-11-23] MEDS ORDERED: ACETAMINOPHEN 325 MG TABLET (FP) PO PRN (11:52)
[2020-11-23 12:02] LABS: CALCIUM 8.6 mg/dl (8.5-10); CREATININE 0.9 mg/dl (0.55-1.3); MAGNESIUM 1.9 mg/dL (1.8-2.4)
[2020-11-23] MEDS ORDERED: POTASSIUM CHLORIDE TABS 20 MEQ TABLET.ER (FP) PO ONE (13:00)
[2020-11-23] MEDS ORDERED: MAGNESIUM SULF 50% (8.12 MEQ/2 ML-1 GM VIAL) IVPB ONE (13:00)
[2020-11-23] MEDS ORDERED: MAGNESIUM 1GM/D5W - 1 GM/100 ML IVPB IVPB ONE (13:15)
[2020-11-23] MEDS ORDERED: WARFARIN NA 2 MG TABLET PO SCH (16:15)
[2020-11-23] MEDS: WARFARIN NA 2 MG TABLET PO SCH (20:22)
[2020-11-24] MEDS: INSULIN SLIDING SCALE (NOVOLOG) 1 VIAL SQ SCH ×4 (06:21→21:23)
[2020-11-24] MEDS: FERROUS SO4 325 MG TABLET (FP) PO SCH ×2 (08:25→17:11)
[2020-11-24] MEDS: FUROSEMIDE 40 MG TABLET (FP) PO SCH (09:17)
[2020-11-24] MEDS: PANTOPRAZOLE 20 MG TABLET PO SCH (09:17)
[2020-11-24 09:49] LABS: INR 2.62 (0.82-1.09); PROTHROMBIN TIME (PATIENT) 27.5 SEC (10.2-13.0)
[2020-11-24 14:48] LABS: CALCIUM 8.7 mg/dl (8.5-10); MAGNESIUM 1.9 mg/dL (1.8-2.4)
[2020-11-24] MEDS: FUROSEMIDE 40 MG/4 ML INJECTABLE VIAL IVPUSH SCH (15:05)
[2020-11-24] MEDS ORDERED: WARFARIN NA 3 MG TABLET ONE (17:08)
[2020-11-24] MEDS ORDERED: WARFARIN NA 5 MG TABLET ONE (17:08)
[2020-11-24] MEDS: WARFARIN NA 3 MG, WARFARIN NA 5 MG PO SCH (17:11)
[2020-11-25] MEDS: INSULIN SLIDING SCALE (NOVOLOG) 1 VIAL SQ SCH ×4 (06:25→21:34)
[2020-11-25] MEDS: FERROUS SO4 325 MG TABLET (FP) PO SCH ×2 (09:00→17:25)
[2020-11-25 09:23] LABS: BASO % 1.5 % (0-2.0); HEMATOCRIT 34.7 % (32.4-45.2)
[2020-11-25 09:30] LABS: ALBUMIN 2.9 g/dl (3.4-5.0); CALCIUM 8.5 mg/dl (8.5-10); CREATININE 0.8 mg/dl (0.55-1.3); MAGNESIUM 1.6 mg/dL (1.8-2.4); TOT PROT 6.2 g/dl (6.4-8.2)
[2020-11-25] MEDS: FUROSEMIDE 40 MG/4 ML INJECTABLE VIAL IVPUSH SCH (09:44)
[2020-11-25] MEDS: PANTOPRAZOLE 20 MG TABLET PO SCH (09:44)
[2020-11-25 10:07] LABS: EOS % 1.8 % (0-4.5); HEMOGLOBIN 10.5 GM/dl (10.7-15.3); LYMPH % 23.2 % (8-40); MCHC 30.2 g/dl (32.0-36.0); MEAN CELL VOLUME 72.9 fl (80-96); MEAN PLT VOLUME 9.4 fl (7.5-11.1); MONO % 8.9 % (3.8-10.2); NEUT % 64.6 % (42.8-82.8); PLATELET COUNT 213 K/MM3 (134-434); RBC 4.76 M/mm3 (3.60-5.2); RDW 24.5 % (11.6-15.6); WHITE BLOOD COUNT 4.2 K/mm3 (4.0-10.8)
[2020-11-25 10:53] LABS: INR 2.5 (0.82-1.09); PROTHROMBIN TIME (PATIENT) 26.4 SEC (10.2-13.0)
[2020-11-25] MEDS: MAGNESIUM OXIDE 400 MG TABLET (FP) PO SCH ×2 (11:49→21:33)
[2020-11-25] MEDS ORDERED: MAGNESIUM 2GM/50ML STERILE WATER IVPB IVPB ONE (12:00)
[2020-11-25] MEDS ORDERED: POTASSIUM CHLORIDE TABS 20 MEQ TABLET.ER (FP) PO ONE (12:00)
[2020-11-25 16:43] LABS: ADD RBC MORPHOLOGY YES
[2020-11-25 17:21] LABS: ANISOCYTOSIS 3+; MACROCYTOSIS 1+
[2020-11-25 17:22] LABS: PLATELET ESTIMATE ADEQUATE
[2020-11-25] MEDS: WARFARIN NA 2 MG TABLET PO SCH (17:26)
[2020-11-26] MEDS: INSULIN SLIDING SCALE (NOVOLOG) 1 VIAL SQ SCH ×3 (07:00→17:15)
[2020-11-26 08:05] LABS: ALBUMIN 2.8 g/dl (3.4-5.0); CALCIUM 8.8 mg/dl (8.5-10); CREATININE 0.9 mg/dl (0.55-1.3); MAGNESIUM 1.9 mg/dL (1.8-2.4); TOT PROT 6.2 g/dl (6.4-8.2)
[2020-11-26 08:20] LABS: INR 2.77 (0.82-1.09)
[2020-11-26 08:47] LABS: MEAN PLT VOLUME 9.1 fl (7.5-11.1); WHITE BLOOD COUNT 4.6 K/mm3 (4.0-10.8)
[2020-11-26 09:00] LABS: BASO % 2.1 % (0-2.0); HEMATOCRIT 35.1 % (32.4-45.2); HEMOGLOBIN 10.6 GM/dl (10.7-15.3); LYMPH % 24.7 % (8-40); MCH 22.4 pg (25.7-33.7); MCHC 30.3 g/dl (32.0-36.0); MEAN CELL VOLUME 74.1 fl (80-96); MONO % 9.8 % (3.8-10.2); NEUT % 61.4 % (42.8-82.8); PLATELET COUNT 225 K/MM3 (134-434); RBC 4.73 M/mm3 (3.60-5.2); RDW 23.6 % (11.6-15.6)
[2020-11-26 10:13] VITALS: BP 127/67; PULSE 86; TEMP 98
[2020-11-26] MEDS: FUROSEMIDE 40 MG/4 ML INJECTABLE VIAL IVPUSH SCH (10:28)
[2020-11-26] MEDS: FERROUS SO4 325 MG TABLET (FP) PO SCH (10:29)
[2020-11-26] MEDS: PANTOPRAZOLE 20 MG TABLET PO SCH (10:29)
[2020-11-26] MEDS: MAGNESIUM OXIDE 400 MG TABLET (FP) PO SCH (10:29)
== END 2020-11-26 19:19 | disposition home or self-care (01) | DRG 308 ==
LOC: FER 09:59 → FM/S 14:42 → FER 15:41 → FM/S 15:43
PROVIDERS: ADMIT Internal Medicine; ATTEND Nurse Practitioner Acute Care
DX: I48.91 Unspecified atrial fibrillation (principal); I50.23 Acute on chronic systolic (congestive) heart failure; I11.0 Hypertensive heart disease with heart failure; I47.2 Ventricular tachycardia; E11.9 Type 2 diabetes mellitus without complications; I25.10 Atherosclerotic heart disease of native coronary artery without angina pectoris; E11.51 Type 2 diabetes mellitus with diabetic peripheral angiopathy without gangrene; E78.5 Hyperlipidemia, unspecified; K21.9 Gastro-esophageal reflux disease without esophagitis; K64.9 Unspecified hemorrhoids; W18.30XA Fall on same level, unspecified, initial encounter; Y92.098 Other place in other non-institutional residence as the place of occurrence of the external cause; Z79.01 Long term (current) use of anticoagulants
CPT/HCPCS: 36415; 70450-TC; 70486-TC; 71045-TC-FY; 72125-TC; 72170-TC-FY; 73030-TC-LT-FY; 73130-TC-LT-FY; 73552-TC-LT-FY; 73562-TC-LT-FY; 80048; 80053; 81003; 81015; 82550; 82962; 83735; 83880; 84484; 85025; 85610; 85730; 87086; 93005; 93306-TC; 97116-GP; 97162-GP; 99285-25; C9803; U0003; U0005

== ENCOUNTER 2022-03-27 11:09 | Inpatient (IN) | payer OTHER ==
[2022-03-27] MEDS ORDERED: ACETAMINOPHEN 1000 MG/100 ML BAG IVPB ONE (11:31)
[2022-03-27] MEDS ORDERED: LIDOCAINE 5% TOPICAL PATCH TP ONE (11:31)
[2022-03-27] MEDS ORDERED: LIDOCAINE 5% TOPICAL PATCH ONE (11:48)
[2022-03-27] MEDS ORDERED: ACETAMINOPHEN INJECTION 100 ML IVPB ONE (11:49)
[2022-03-27 12:22] LABS: HEMATOCRIT 34.6 % (32.4-45.2); HEMOGLOBIN 11.3 G/dL (10.7-15.3); MCH 25.3 pg (25.7-33.7); MCHC 32.7 g/dl (32.0-36.0); MEAN CELL VOLUME 77.3 fl (80-96); MEAN PLT VOLUME 9.6 fl (7.5-11.1); PLATELET COUNT 254.2 10^3/uL (134-434); RBC 4.48 10^6/uL (3.60-5.2); RDW 19.5 % (11.6-15.6); WHITE BLOOD COUNT 7.3 10^3/uL (4.0-10.8)
[2022-03-27 12:54] LABS: PLATELET ESTIMATE ADEQUATE
[2022-03-27 14:09] LABS: ALBUMIN 3.2 g/dl (3.4-5.0); BILIRUBIN,TOTAL 0.9 mg/dl (0.2-1); CALCIUM 8.8 mg/dl (8.5-10); CREATININE 0.8 mg/dl (0.55-1.3)
[2022-03-27 14:41] LABS: EPITHELIAL CELLS MANY /hpf
[2022-03-27] MEDS ORDERED: CEFTRIAXONE 1,000 MG in DEXTROSE 5%-WATER - 50 ML IVPB ONE (14:41)
[2022-03-27] MEDS ORDERED: KETOROLAC TROMETHAMINE 15 MG/ML VIAL IVPUSH ONE (14:41)
[2022-03-27] MEDS ORDERED: KETOROLAC TROMETHAMINE 15 MG/ML VIAL ONE (14:44)
[2022-03-27] MEDS ORDERED: cefTRIAXone SODIUM 1 GM VIAL ONE (14:44)
[2022-03-27] MEDS ORDERED: ACETAMINOPHEN 325 MG TABLET (FP) PO PRN (16:54)
[2022-03-27] MEDS ORDERED: SODIUM CHLORIDE 1,000 ML IV SCH (17:00)
[2022-03-27] MEDS ORDERED: FUROSEMIDE 40 MG TABLET (FP) PO ONE (17:15)
[2022-03-27] MEDS ORDERED: FUROSEMIDE 40 MG TABLET (FP) ONE (17:18)
[2022-03-27] MEDS ORDERED: WARFARIN NA 2 MG TABLET PO SCH (18:00)
[2022-03-27 19:03] VITALS: BMI 30.9
[2022-03-27] MEDS: POLYETHYLENE GLYCOL (HEALTHYLAX) 3350 17 GM PACKET PO SCH (21:44)
[2022-03-27] MEDS: DOCUSATE SODIUM 100 MG CAPSULE (FP) PO SCH (21:44)
[2022-03-27] MEDS: WARFARIN NA 5 MG, WARFARIN NA 3 MG PO SCH (21:44)
[2022-03-27] MEDS ORDERED: LIDOCAINE PATCH REMOVAL MC SCH (22:00)
[2022-03-27] MEDS: LIDOCAINE PATCH REMOVAL MC SCH (23:17)
[2022-03-28 08:11] LABS: HEMATOCRIT 32.7 % (32.4-45.2); HEMOGLOBIN 10.7 G/dL (10.7-15.3); MCH 25.4 pg (25.7-33.7); MCHC 32.8 g/dl (32.0-36.0); MEAN CELL VOLUME 77.3 fl (80-96); MEAN PLT VOLUME 9.4 fl (7.5-11.1); PLATELET COUNT 213.2 10^3/uL (134-434); RBC 4.23 10^6/uL (3.60-5.2); RDW 19.5 % (11.6-15.6); WHITE BLOOD COUNT 5.3 10^3/uL (4.0-10.8)
[2022-03-28 08:16] LABS: INR 2.89 (0.83-1.09); PROTHROMBIN TIME (PATIENT) 33.6 SEC (9.7-13.0)
[2022-03-28] MEDS ORDERED: ACETAMINOPHEN 1000 MG/100 ML BAG IVPB PRN (08:30)
[2022-03-28] MEDS ORDERED: ACETAMINOPHEN 325 MG TABLET (FP) PO PRN (08:31)
[2022-03-28] MEDS ORDERED: LIDOCAINE 5% TOPICAL PATCH TP SCH (10:00)
[2022-03-28] MEDS ORDERED: ENOXAPARIN NA (PORCINE) 40 MG/0.4 ML DISP.SYRIN SQ SCH (10:00)
[2022-03-28] MEDS: CEFTRIAXONE 1 GM in DEXTROSE 5%-WATER - 50 ML IVPB SCH (10:52)
[2022-03-28] MEDS: POLYETHYLENE GLYCOL (HEALTHYLAX) 3350 17 GM PACKET PO SCH ×2 (10:53→21:57)
[2022-03-28] MEDS: FUROSEMIDE 40 MG TABLET (FP) PO SCH (10:53)
[2022-03-28] MEDS: LIDOCAINE 5% TOPICAL PATCH TP SCH (10:55)
[2022-03-28] MEDS ORDERED: PANTOPRAZOLE 40 MG TABLET PO ONE (10:56)
[2022-03-28] MEDS ORDERED: WARFARIN NA 2 MG TABLET PO SCH ×2 (18:00)
[2022-03-28] MEDS: DOCUSATE SODIUM 100 MG CAPSULE (FP) PO SCH (21:56)
[2022-03-28] MEDS: LIDOCAINE PATCH REMOVAL MC SCH (21:57)
[2022-03-29 08:22] LABS: HEMATOCRIT 41.8 % (32.4-45.2); HEMOGLOBIN 13.6 G/dL (10.7-15.3); MCH 25.3 pg (25.7-33.7); MCHC 32.6 g/dl (32.0-36.0); MEAN CELL VOLUME 77.5 fl (80-96); MEAN PLT VOLUME 8.9 fl (7.5-11.1); PLATELET COUNT 139.8 10^3/uL (134-434); RBC 5.39 10^6/uL (3.60-5.2); RDW 20.3 % (11.6-15.6); WHITE BLOOD COUNT 5.4 10^3/uL (4.0-10.8)
[2022-03-29 08:36] LABS: ALBUMIN 2.9 g/dl (3.4-5.0); BILIRUBIN,TOTAL 0.7 mg/dl (0.2-1); CREATININE 0.7 mg/dl (0.55-1.3); MAGNESIUM 1.7 mg/dL (1.8-2.4); TOT PROT 6.5 g/dl (6.4-8.2)
[2022-03-29 08:43] LABS: CALCIUM 8.5 mg/dl (8.5-10)
[2022-03-29] MEDS: PANTOPRAZOLE 40 MG TABLET PO SCH (10:07)
[2022-03-29] MEDS: FUROSEMIDE 40 MG TABLET (FP) PO SCH (10:07)
[2022-03-29] MEDS: CEFTRIAXONE 1 GM in DEXTROSE 5%-WATER - 50 ML IVPB SCH (10:08)
[2022-03-29] MEDS: LIDOCAINE 5% TOPICAL PATCH TP SCH (10:08)
[2022-03-29] MEDS: POLYETHYLENE GLYCOL (HEALTHYLAX) 3350 17 GM PACKET PO SCH ×2 (10:26→21:46)
[2022-03-29 14:33] LABS: INR 3.42 (0.83-1.09); PROTHROMBIN TIME (PATIENT) 39.8 SEC (9.7-13.0)
[2022-03-29] MEDS ORDERED: WARFARIN NA 5 MG, WARFARIN NA 3 MG PO SCH (18:00)
[2022-03-29] MEDS: WARFARIN NA 5 MG, WARFARIN NA 3 MG PO SCH (18:11)
[2022-03-29] MEDS: LIDOCAINE PATCH REMOVAL MC SCH (21:45)
[2022-03-29] MEDS: DOCUSATE SODIUM 100 MG CAPSULE (FP) PO SCH (21:47)
[2022-03-30 08:18] LABS: INR 2.87 (0.83-1.09); PROTHROMBIN TIME (PATIENT) 33.3 SEC (9.7-13.0)
[2022-03-30 08:58] LABS: ALBUMIN 2.9 g/dl (3.4-5.0); BILIRUBIN,TOTAL 0.7 mg/dl (0.2-1); CALCIUM 8.5 mg/dl (8.5-10); CREATININE 0.7 mg/dl (0.55-1.3); MAGNESIUM 1.7 mg/dL (1.8-2.4); TOT PROT 6.4 g/dl (6.4-8.2)
[2022-03-30 09:54] LABS: HEMATOCRIT 33.9 % (32.4-45.2); MCH 25.3 pg (25.7-33.7); MCHC 32.4 g/dl (32.0-36.0); MEAN CELL VOLUME 78.2 fl (80-96); MEAN PLT VOLUME 9.3 fl (7.5-11.1); PLATELET COUNT 206.4 10^3/uL (134-434); RBC 4.33 10^6/uL (3.60-5.2); RDW 18.7 % (11.6-15.6); WHITE BLOOD COUNT 5.2 10^3/uL (4.0-10.8)
[2022-03-30] MEDS: FUROSEMIDE 40 MG TABLET (FP) PO SCH (10:18)
[2022-03-30] MEDS: CEFTRIAXONE 1 GM in DEXTROSE 5%-WATER - 50 ML IVPB SCH (10:18)
[2022-03-30] MEDS: PANTOPRAZOLE 40 MG TABLET PO SCH (10:19)
[2022-03-30] MEDS: LIDOCAINE 5% TOPICAL PATCH TP SCH (10:20)
[2022-03-30] MEDS: POLYETHYLENE GLYCOL (HEALTHYLAX) 3350 17 GM PACKET PO SCH ×2 (11:46→21:15)
[2022-03-30 14:18] VITALS: RESP 16
[2022-03-30] MEDS: WARFARIN NA 5 MG, WARFARIN NA 3 MG PO SCH (18:04)
[2022-03-30] MEDS: DOCUSATE SODIUM 100 MG CAPSULE (FP) PO SCH (21:14)
[2022-03-30] MEDS: LIDOCAINE PATCH REMOVAL MC SCH (21:16)
[2022-03-31 01:53] VITALS: TEMP 97.7
[2022-03-31 06:24] VITALS: BP 138/62; PULSE 89
[2022-03-31] MEDS: CEFTRIAXONE 1 GM in DEXTROSE 5%-WATER - 50 ML IVPB SCH (09:39)
[2022-03-31] MEDS: LIDOCAINE 5% TOPICAL PATCH TP SCH (09:40)
[2022-03-31] MEDS: FUROSEMIDE 40 MG TABLET (FP) PO SCH (09:40)
[2022-03-31] MEDS: POLYETHYLENE GLYCOL (HEALTHYLAX) 3350 17 GM PACKET PO SCH (09:40)
[2022-03-31] MEDS: PANTOPRAZOLE 40 MG TABLET PO SCH (09:41)
== END 2022-03-31 11:17 | disposition home or self-care (01) | DRG 690 ==
LOC: FER 11:09 → FM/S 16:38 → OBSVTOIN 16:47
PROVIDERS: ADMIT Internal Medicine
DX: N39.0 Urinary tract infection, site not specified (principal); I10 Essential (primary) hypertension; J44.9 Chronic obstructive pulmonary disease, unspecified; K21.9 Gastro-esophageal reflux disease without esophagitis; I25.10 Atherosclerotic heart disease of native coronary artery without angina pectoris; I48.91 Unspecified atrial fibrillation; Z99.81 Dependence on supplemental oxygen; E11.9 Type 2 diabetes mellitus without complications; I50.9 Heart failure, unspecified; E78.5 Hyperlipidemia, unspecified; M19.90 Unspecified osteoarthritis, unspecified site; R31.9 Hematuria, unspecified
CPT/HCPCS: 0241U-QW; 36415; 71045-TC-FY; 74177-TC; 80053; 81003; 81015; 83605; 83735; 84484; 85025; 85027; 85610; 87086; 87186; 93005; 97116-GP; 97162-GP; 99285-25; G0378

== ENCOUNTER 2022-06-19 12:18 | Inpatient (IN) | payer OTHER ==
[2022-06-19 13:41] LABS: HEMATOCRIT 35.2 % (32.4-45.2); HEMOGLOBIN 11.1 G/dL (10.7-15.3); MCH 23.4 pg (25.7-33.7); MCHC 31.4 g/dl (32.0-36.0); MEAN CELL VOLUME 74.5 fl (80-96); MEAN PLT VOLUME 9.1 fl (7.5-11.1); PLATELET COUNT 176.3 10^3/uL (134-434); RBC 4.73 10^6/uL (3.60-5.2); RDW 20.9 % (11.6-15.6); WHITE BLOOD COUNT 5.5 10^3/uL (4.0-10.8)
[2022-06-19 13:45] LABS: PLATELET ESTIMATE ADEQUATE
[2022-06-19 13:48] LABS: BILIRUBIN,TOTAL 0.9 mg/dl (0.2-1); CREATININE 0.8 mg/dl (0.55-1.3); TOT PROT 6.7 g/dl (6.4-8.2)
[2022-06-19 14:10] LABS: INR 10.38 (0.83-1.09); PROTHROMBIN TIME (PATIENT) 122.2 SEC (9.7-13.0)
[2022-06-19] MEDS ORDERED: FUROSEMIDE 40 MG/4 ML INJECTABLE VIAL IVPUSH ONE (15:20)
[2022-06-19] MEDS ORDERED: PHYTONADIONE 10 MG/1 ML AMP SQ ONE (15:21)
[2022-06-19] MEDS ORDERED: PHYTONADIONE 10 MG/1 ML AMP ONE (15:24)
[2022-06-19] MEDS ORDERED: FUROSEMIDE 40 MG/4 ML INJECTABLE VIAL ONE (15:24)
[2022-06-19 17:14] LABS: MAGNESIUM 1.6 mg/dL (1.8-2.4); PHOSPHOROUS 3.1 mg/dl (2.5-4.9)
[2022-06-19] MEDS ORDERED: MELATONIN 5 MG TABLETS PO PRN (21:02)
[2022-06-19 22:36] LABS: N-TERMINAL BNP 33799.6 pg/ml (5-450)
[2022-06-19 23:22] LABS: EPITHELIAL CELLS FEW /hpf
[2022-06-20] MEDS ORDERED: MAGNESIUM SULFATE IN WATER 2 GM/50 ML IVPB IVPB ONE (03:00)
[2022-06-20] MEDS: FUROSEMIDE 40 MG TABLET (FP) PO SCH ×2 (06:07→15:43)
[2022-06-20 08:25] LABS: INR 4.59 (0.83-1.09); PROTHROMBIN TIME (PATIENT) 53.6 SEC (9.7-13.0)
[2022-06-20 08:30] LABS: CALCIUM 8.3 mg/dl (8.5-10); CREATININE 0.9 mg/dl (0.55-1.3)
[2022-06-20] MEDS: MAGNESIUM OXIDE 400 MG TABLET (FP) PO SCH (09:26)
[2022-06-20 09:50] LABS: BASO % 0.5 % (0-2.0); EOS % 0.3 % (0-4.5); HEMATOCRIT 34.9 % (32.4-45.2); HEMOGLOBIN 10.4 GM/dL (10.7-15.3); LYMPH % 25.8 % (8-40); MCH 22.2 pg (25.7-33.7); MCHC 29.9 g/dl (32.0-36.0); MEAN CELL VOLUME 74.2 fl (80-96); MEAN PLT VOLUME 9.6 fl (7.5-11.1); NEUT % 65.4 % (42.8-82.8); PLATELET COUNT 163 10^3/uL (134-434); RDW 20.7 % (11.6-15.6); WHITE BLOOD COUNT 4.2 K/mm3 (4.0-10.0)
[2022-06-20 10:12] LABS: ANISOCYTOSIS 2+; MACROCYTOSIS 0
[2022-06-20] MEDS: INSULIN SLIDING SCALE (NOVOLOG) 1 VIAL SQ SCH ×3 (12:18→21:31)
[2022-06-21] MEDS: FUROSEMIDE 40 MG TABLET (FP) PO SCH ×2 (05:53→15:21)
[2022-06-21] MEDS: INSULIN SLIDING SCALE (NOVOLOG) 1 VIAL SQ SCH ×4 (06:04→21:27)
[2022-06-21] MEDS: MAGNESIUM OXIDE 400 MG TABLET (FP) PO SCH (09:27)
[2022-06-21 11:38] LABS: INR 1.93 (0.83-1.09); PROTHROMBIN TIME (PATIENT) 22.3 SEC (9.7-13.0)
[2022-06-21 11:45] LABS: ALBUMIN 2.8 g/dl (3.4-5.0); BILIRUBIN,TOTAL 1.1 mg/dl (0.2-1); CALCIUM 8.4 mg/dl (8.5-10); CREATININE 0.8 mg/dl (0.55-1.3)
[2022-06-21] MEDS: OSELTAMIVIR PHOSPHATE 75 MG CAPSULE PO SCH ×2 (12:00→21:25)
[2022-06-21] MEDS: CEFTRIAXONE 1 GM in DEXTROSE 5%-WATER - 50 ML IVPB SCH (12:00)
[2022-06-21 12:02] LABS: HEMATOCRIT 34.4 % (32.4-45.2); HEMOGLOBIN 10.8 G/dL (10.7-15.3); MCH 23.5 pg (25.7-33.7); MCHC 31.3 g/dl (32.0-36.0); MEAN CELL VOLUME 75.1 fl (80-96); MEAN PLT VOLUME 9.6 fl (7.5-11.1); PLATELET COUNT 168.6 10^3/uL (134-434); RBC 4.58 10^6/uL (3.60-5.2); RDW 20.6 % (11.6-15.6); WHITE BLOOD COUNT 4.1 10^3/uL (4.0-10.8)
[2022-06-21 12:13] LABS: ANISOCYTOSIS 1+
[2022-06-22] MEDS: FUROSEMIDE 40 MG TABLET (FP) PO SCH (06:17)
[2022-06-22] MEDS: INSULIN SLIDING SCALE (NOVOLOG) 1 VIAL SQ SCH ×4 (06:18→21:03)
[2022-06-22] MEDS ORDERED: RAPID SEQUENCE INTUBATION KIT NR ONE (08:43)
[2022-06-22 08:54] LABS: INR 1.51 (0.83-1.09); PROTHROMBIN TIME (PATIENT) 17.4 SEC (9.7-13.0)
[2022-06-22 09:07] LABS: ALBUMIN 2.8 g/dl (3.4-5.0); BILIRUBIN,TOTAL 1.1 mg/dl (0.2-1); CALCIUM 8.3 mg/dl (8.5-10); CREATININE 0.8 mg/dl (0.55-1.3); TOT PROT 5.8 g/dl (6.4-8.2)
[2022-06-22 09:11] LABS: HEMATOCRIT 32.5 % (32.4-45.2); HEMOGLOBIN 10.3 G/dL (10.7-15.3); MCH 23.9 pg (25.7-33.7); MCHC 31.6 g/dl (32.0-36.0); MEAN CELL VOLUME 75.3 fl (80-96); MEAN PLT VOLUME 9.6 fl (7.5-11.1); RBC 4.31 10^6/uL (3.60-5.2); RDW 19.1 % (11.6-15.6); WHITE BLOOD COUNT 4.1 10^3/uL (4.0-10.8)
[2022-06-22] MEDS ORDERED: AMIODARONE IN DEXTROSE,ISO-OSM 360 MG/200 ML BAG IV SCH ×2 (09:30→11:00)
[2022-06-22] MEDS ORDERED: HEPARIN NA (PORCINE) 5,000 UNITS/ML 1ML VIAL IVPUSH ONE (09:34)
[2022-06-22] MEDS ORDERED: HEPARIN NA (PORCINE) 5,000 UNITS/ML 1ML VIAL IVPUSH PRN ×4 (09:36→09:44)
[2022-06-22 09:38] LABS: INR 1.48 (0.83-1.09); PROTHROMBIN TIME (PATIENT) 17.1 SEC (9.7-13.0)
[2022-06-22] MEDS ORDERED: HEPARIN - 25,000 UNIT in SODIUM CHLORIDE 495 ML IV SCH (09:45)
[2022-06-22 09:47] LABS: CALCIUM 8.4 mg/dl (8.5-10); CREATININE 0.8 mg/dl (0.55-1.3); TOT PROT 6.3 g/dl (6.4-8.2)
[2022-06-22 09:48] LABS: ALBUMIN 2.9 g/dl (3.4-5.0); BILIRUBIN,TOTAL 1.2 mg/dl (0.2-1)
[2022-06-22] MEDS: HEPARIN INFUSION - 25,000 UNITS/500 ML INFUS.BAG IVPB SCH (09:51)
[2022-06-22] MEDS: FUROSEMIDE 40 MG/4 ML INJECTABLE VIAL IVPUSH SCH ×2 (10:09→13:00)
[2022-06-22] MEDS ORDERED: KCL 10 MEQ IVPB 10 MEQ/100 ML INFUS.BAG IVPB SCH (10:15)
[2022-06-22 10:55] LABS: MAGNESIUM 1.7 mg/dL (1.8-2.4); PHOSPHOROUS 3.8 mg/dl (2.5-4.9)
[2022-06-22 11:46] LABS: ARTERIAL BLD GAS O2 SATURATION 96.7 % (95-98); ARTERIAL BLOOD GAS BASE EXCESS 2.6 mmol/L (-2-2); ARTERIAL BLOOD GAS PO2 94.3 mmHg (80-100); ARTERIAL BLOOD GAS pH 7.349 (7.350-7.450)
[2022-06-22 11:48] LABS: ALLENS TEST POSITIVE
[2022-06-22] MEDS ORDERED: ACETAMINOPHEN 1000 MG/100 ML BAG IVPB STA (12:20)
[2022-06-22] MEDS: CEFTRIAXONE 1 GM in DEXTROSE 5%-WATER - 50 ML IVPB SCH (12:52)
[2022-06-22] MEDS: OSELTAMIVIR PHOSPHATE 75 MG CAPSULE PO SCH ×2 (12:52→21:03)
[2022-06-22 13:23] LABS: PLATELET ESTIMATE ADEQUATE
[2022-06-22] MEDS: ACETAMINOPHEN 1000 MG/100 ML BAG IVPB PRN (17:32)
[2022-06-22] MEDS: AMIODARONE IN DEXTROSE,ISO-OSM 360 MG/200 ML BAG IV SCH (17:42)
[2022-06-22] MEDS: FUROSEMIDE INJECTION 100 MG in SODIUM CHLORIDE 90 ML IVPB SCH (22:23)
[2022-06-23] MEDS: ACETAMINOPHEN 1000 MG/100 ML BAG IVPB PRN ×2 (02:11→07:20)
[2022-06-23] MEDS: AMIODARONE IN DEXTROSE,ISO-OSM 360 MG/200 ML BAG IV SCH ×2 (05:49→17:49)
[2022-06-23] MEDS: INSULIN SLIDING SCALE (NOVOLOG) 1 VIAL SQ SCH ×4 (06:12→21:18)
[2022-06-23] MEDS ORDERED: PANTOPRAZOLE SODIUM 40 MG VIAL IVPUSH STA (06:18)
[2022-06-23] MEDS ORDERED: MAG HYDROX/AL HYDROX/SIMETH 30 ML UNIT-DOSE CUP PO PRN (06:19)
[2022-06-23] MEDS ORDERED: NITROGLYCERIN SUBLINGUAL 1/150 0.4 MG TAB SL STA (06:20)
[2022-06-23] MEDS: FUROSEMIDE INJECTION 100 MG in SODIUM CHLORIDE 90 ML IVPB SCH (06:39)
[2022-06-23 07:51] LABS: BASO % 0.3 % (0-2.0); EOS % 0.3 % (0-4.5); HEMATOCRIT 35.7 % (32.4-45.2); LYMPH % 11.1 % (8-40); MCH 22.5 pg (25.7-33.7); MCHC 30.8 g/dl (32.0-36.0); MEAN CELL VOLUME 72.9 fl (80-96); MEAN PLT VOLUME 9.4 fl (7.5-11.1); MONO % 6.5 % (3.8-10.2); NEUT % 81.8 % (42.8-82.8); PLATELET COUNT 239 10^3/uL (134-434); RBC 4.89 M/mm3 (3.60-5.2); WHITE BLOOD COUNT 7.3 K/mm3 (4.0-10.0)
[2022-06-23 08:18] LABS: BLOOD UREA NITROGEN 13.1 mg/dL (7-18); PHOSPHOROUS 3.5 mg/dL (2.5-4.9)
[2022-06-23 08:19] LABS: ALBUMIN 2.8 g/dl (3.4-5.0); CALCIUM 8.2 mg/dL (8.5-10.1); MAGNESIUM 1.5 mg/dL (1.8-2.4)
[2022-06-23 08:20] LABS: BILIRUBIN,TOTAL 0.8 mg/dL (0.2-1); TOT PROT 6.7 g/dl (6.4-8.2)
[2022-06-23 08:21] LABS: CREATININE 0.9 mg/dL (0.55-1.3)
[2022-06-23] MEDS ORDERED: TRIMETHOBENZAMIDE HCL 200MG/2ML INJ IM ONE (09:51)
[2022-06-23] MEDS: HEPARIN INFUSION - 25,000 UNITS/500 ML INFUS.BAG IVPB SCH (10:40)
[2022-06-23] MEDS: CEFTRIAXONE 1 GM in DEXTROSE 5%-WATER - 50 ML IVPB SCH (10:42)
[2022-06-23] MEDS: ASPIRIN COATED 81 MG TABLET.EC PO SCH (10:42)
[2022-06-23] MEDS: FUROSEMIDE 40 MG/4 ML INJECTABLE VIAL IVPUSH SCH (10:42)
[2022-06-23] MEDS: OSELTAMIVIR PHOSPHATE 75 MG CAPSULE PO SCH ×2 (10:42→21:18)
[2022-06-23] MEDS ORDERED: MAGNESIUM SULF 50% (8.12 MEQ/2 ML-1 GM VIAL) IVPB ONE (10:45)
[2022-06-23] MEDS: KCL 10 MEQ IVPB 10 MEQ/100 ML INFUS.BAG IVPB SCH ×3 (10:55→13:23)
[2022-06-24] MEDS: INSULIN SLIDING SCALE (NOVOLOG) 1 VIAL SQ SCH ×4 (07:38→21:25)
[2022-06-24 07:44] LABS: HEMOGLOBIN 11.1 GM/dL (10.7-15.3); MCH 22.4 pg (25.7-33.7); MCHC 30.8 g/dl (32.0-36.0); MEAN CELL VOLUME 72.6 fl (80-96); MEAN PLT VOLUME 9.2 fl (7.5-11.1); PLATELET COUNT 238 10^3/uL (134-434); RBC 4.95 M/mm3 (3.60-5.2); RDW 19.8 % (11.6-15.6); WHITE BLOOD COUNT 6.2 K/mm3 (4.0-10.0)
[2022-06-24] MEDS: AMIODARONE IN DEXTROSE,ISO-OSM 360 MG/200 ML BAG IV SCH (08:57)
[2022-06-24] MEDS: ASPIRIN COATED 81 MG TABLET.EC PO SCH (09:01)
[2022-06-24] MEDS: FUROSEMIDE 40 MG/4 ML INJECTABLE VIAL IVPUSH SCH (09:01)
[2022-06-24] MEDS: CEFTRIAXONE 1 GM in DEXTROSE 5%-WATER - 50 ML IVPB SCH (09:01)
[2022-06-24 10:25] LABS: CHLORIDE 84 mmol/L (98-107); SODIUM 132 mmol/L (136-145)
[2022-06-24 10:27] LABS: CALCIUM 8.3 mg/dL (8.5-10.1)
[2022-06-24 10:28] LABS: ALBUMIN 2.6 g/dl (3.4-5.0); BLOOD UREA NITROGEN 12.9 mg/dL (7-18); CO2 34 mmol/L (21-32); GLUCOSE,RANDOM 397 mg/dL (74-106); MAGNESIUM 1.7 mg/dL (1.8-2.4)
[2022-06-24 10:31] LABS: PHOSPHOROUS 2.8 mg/dL (2.5-4.9); SGOT/AST 45 U/L (15-37); SGPT/ALT 40 U/L (13-61)
[2022-06-24 10:33] LABS: BILIRUBIN,TOTAL 0.8 mg/dL (0.2-1)
[2022-06-24 10:34] LABS: ALK PHOS 58 U/L (45-117)
[2022-06-24 10:36] LABS: ANION GAP 13 MMOL/L (8-16)
[2022-06-24] MEDS ORDERED: POTASSIUM CHLORIDE ORAL LIQUID 20 MEQ/15 ML PO ONE (11:00)
[2022-06-24] MEDS ORDERED: MAGNESIUM SULF 50% (8.12 MEQ/2 ML-1 GM VIAL) IVPB ONE (11:00)
[2022-06-24] MEDS: OSELTAMIVIR PHOSPHATE 75 MG CAPSULE PO SCH ×2 (11:16→21:21)
[2022-06-24] MEDS: KCL 10 MEQ IVPB 10 MEQ/100 ML INFUS.BAG IVPB SCH ×3 (12:28→16:08)
[2022-06-24] MEDS: AMIODARONE HCL 200 MG TABLET PO SCH ×2 (12:28→21:21)
[2022-06-24] MEDS: ENOXAPARIN NA (PORCINE) 80 MG/0.8 ML DISP.SYRIN SQ SCH ×2 (13:17→23:53)
[2022-06-24 13:27] VITALS: BMI 30.7
[2022-06-24 13:42] LABS: BLOOD UREA NITROGEN 14.2 mg/dL (7-18); CALCIUM 8.6 mg/dL (8.5-10.1)
[2022-06-24 13:46] LABS: CREATININE 0.8 mg/dL (0.55-1.3)
[2022-06-24] MEDS: HEPARIN INFUSION - 25,000 UNITS/500 ML INFUS.BAG IVPB SCH (16:08)
[2022-06-24 16:34] LABS: CALCIUM 8.9 mg/dL (8.5-10.1)
[2022-06-24 16:38] LABS: CREATININE 0.8 mg/dL (0.55-1.3)
[2022-06-25] MEDS: INSULIN SLIDING SCALE (NOVOLOG) 1 VIAL SQ SCH ×4 (06:20→22:14)
[2022-06-25 08:15] LABS: BASO % 0.4 % (0-2.0); EOS % 1.4 % (0-4.5); HEMATOCRIT 34.6 % (32.4-45.2); HEMOGLOBIN 10.5 GM/dL (10.7-15.3); LYMPH % 15.9 % (8-40); MCH 22.1 pg (25.7-33.7); MCHC 30.4 g/dl (32.0-36.0); MEAN CELL VOLUME 72.6 fl (80-96); MEAN PLT VOLUME 8.7 fl (7.5-11.1); MONO % 8.5 % (3.8-10.2); NEUT % 73.8 % (42.8-82.8); PLATELET COUNT 216 10^3/uL (134-434); RBC 4.77 M/mm3 (3.60-5.2); RDW 19.6 % (11.6-15.6); WHITE BLOOD COUNT 4.7 K/mm3 (4.0-10.0)
[2022-06-25 08:33] LABS: ALBUMIN 2.6 g/dl (3.4-5.0); BLOOD UREA NITROGEN 15.5 mg/dL (7-18); PHOSPHOROUS 2.8 mg/dL (2.5-4.9)
[2022-06-25 08:34] LABS: CALCIUM 8.7 mg/dL (8.5-10.1); MAGNESIUM 2.3 mg/dL (1.8-2.4); TOT PROT 6.2 g/dl (6.4-8.2)
[2022-06-25 08:36] LABS: CREATININE 0.8 mg/dL (0.55-1.3)
[2022-06-25] MEDS: OSELTAMIVIR PHOSPHATE 75 MG CAPSULE PO SCH ×2 (09:47→22:08)
[2022-06-25] MEDS: AMIODARONE HCL 200 MG TABLET PO SCH ×3 (09:47→23:04)
[2022-06-25] MEDS: CEFTRIAXONE 1 GM in DEXTROSE 5%-WATER - 50 ML IVPB SCH (09:47)
[2022-06-25] MEDS: FUROSEMIDE 40 MG/4 ML INJECTABLE VIAL IVPUSH SCH (09:47)
[2022-06-25] MEDS: ASPIRIN COATED 81 MG TABLET.EC PO SCH ×2 (09:47→09:51)
[2022-06-25] MEDS ORDERED: ACETAMINOPHEN 1000 MG/100 ML BAG IVPB PRN (10:23)
[2022-06-25] MEDS ORDERED: POTASSIUM CHLORIDE TABS 20 MEQ TABLET.ER (FP) PO ONE (10:23)
[2022-06-25] MEDS: ENOXAPARIN NA (PORCINE) 80 MG/0.8 ML DISP.SYRIN SQ SCH (11:51)
[2022-06-25 23:38] VITALS: BP 144/104; PULSE 103; RESP 15; TEMP 98.3
== END 2022-06-25 23:39 | disposition short-term general hospital (02) | DRG 291 ==
LOC: FER 12:18 → FM/S 15:43 → JICU 06-22 11:41
PROVIDERS: ADMIT Internal Medicine; ATTEND Internal Medicine
PROC: 5A12012 Performance of Cardiac Output, Single, Manual (ICD-10-PCS; principal; 2022-06-22)
DX: I13.0 Hypertensive heart and chronic kidney disease with heart failure and stage 1 through stage 4 chronic kidney disease, or unspecified chronic kidney disease (principal); I46.9 Cardiac arrest, cause unspecified; I50.23 Acute on chronic systolic (congestive) heart failure; J18.9 Pneumonia, unspecified organism; I47.20 Ventricular tachycardia, unspecified; N39.0 Urinary tract infection, site not specified; I45.2 Bifascicular block; I48.21 Permanent atrial fibrillation; T45.511A Poisoning by anticoagulants, accidental (unintentional), initial encounter; Y92.89 Other specified places as the place of occurrence of the external cause; I42.9 Cardiomyopathy, unspecified; J10.1 Influenza due to other identified influenza virus with other respiratory manifestations; N18.9 Chronic kidney disease, unspecified; R79.1 Abnormal coagulation profile; K21.9 Gastro-esophageal reflux disease without esophagitis
CPT/HCPCS: 0241U-QW; 36415; 36600; 71045-TC-FY; 80048; 80053; 81003; 81015; 82803; 82962; 83735; 83880; 84100; 84484; 85025; 85027; 85610; 85730; 87040; 93005; 93010; 97116-GP; 97162-GP; 99285-25; C9803-CS; J1644; U0003; U0005

== ENCOUNTER 2022-06-29 13:31 | Observation (INO) | payer OTHER ==
[2022-06-29] MEDS: ACETAMINOPHEN 325 MG TABLET (FP) PO PRN ×2 (15:29→21:19)
[2022-06-29 16:25] VITALS: BMI 30.2
[2022-06-29] MEDS: INSULIN SLIDING SCALE (NOVOLOG) 1 VIAL SQ SCH (17:13)
[2022-06-29 17:21] LABS: BASO % 0.8 % (0-2.0); EOS % 0.7 % (0-4.5); HEMATOCRIT 34.6 % (32.4-45.2); HEMOGLOBIN 10.6 GM/dL (10.7-15.3); LYMPH % 13.9 % (8-40); MCH 22.6 pg (25.7-33.7); MCHC 30.5 g/dl (32.0-36.0); MEAN PLT VOLUME 8.6 fl (7.5-11.1); NEUT % 76.6 % (42.8-82.8); PLATELET COUNT 302 10^3/uL (134-434); RBC 4.67 M/mm3 (3.60-5.2); RDW 20.6 % (11.6-15.6); WHITE BLOOD COUNT 7.5 K/mm3 (4.0-10.0)
[2022-06-29 17:31] LABS: INR 1.97 (0.83-1.09); PROTHROMBIN TIME (PATIENT) 22.8 SEC (9.7-13.0)
[2022-06-29 17:33] LABS: ACTIVATED PTT 32.2 SECONDS (25.2-36.5)
[2022-06-29 17:45] LABS: BLOOD UREA NITROGEN 23.2 mg/dL (7-18); CALCIUM 8.9 mg/dL (8.5-10.1); MAGNESIUM 1.9 mg/dL (1.8-2.4)
[2022-06-29 17:46] LABS: ALBUMIN 2.7 g/dl (3.4-5.0)
[2022-06-29 17:48] LABS: PHOSPHOROUS 2.2 mg/dL (2.5-4.9)
[2022-06-29 17:49] LABS: CREATININE 0.9 mg/dL (0.55-1.3)
[2022-06-29 17:50] LABS: BILIRUBIN,TOTAL 0.8 mg/dL (0.2-1); TOT PROT 6.6 g/dl (6.4-8.2)
[2022-06-29 17:53] LABS: N-TERMINAL BNP 3984.2 pg/ml (5-450)
[2022-06-29 19:12] LABS: ANISOCYTOSIS 2+; MACROCYTOSIS 2+; OVALOCYTE 2+; TEAR DROP CELLS 1+
[2022-06-29] MEDS ORDERED: SODIUM CHLORIDE 500 ML IV STA (19:42)
[2022-06-29] MEDS: APIXABAN 5 MG TABLET PO SCH (21:20)
[2022-06-30] MEDS: FUROSEMIDE 40 MG TABLET (FP) PO SCH ×2 (06:34→14:55)
[2022-06-30] MEDS: INSULIN SLIDING SCALE (NOVOLOG) 1 VIAL SQ SCH ×3 (06:34→16:42)
[2022-06-30 08:33] LABS: BASO % 0.8 % (0-2.0); EOS % 0.9 % (0-4.5); HEMOGLOBIN 9.7 GM/dL (10.7-15.3); LYMPH % 15.9 % (8-40); MCH 22.5 pg (25.7-33.7); MCHC 30.2 g/dl (32.0-36.0); MEAN CELL VOLUME 74.6 fl (80-96); MEAN PLT VOLUME 8.4 fl (7.5-11.1); MONO % 7.8 % (3.8-10.2); NEUT % 74.6 % (42.8-82.8); PLATELET COUNT 262 10^3/uL (134-434); WHITE BLOOD COUNT 6.3 K/mm3 (4.0-10.0)
[2022-06-30 08:37] LABS: INR 1.77 (0.83-1.09); PROTHROMBIN TIME (PATIENT) 20.5 SEC (9.7-13.0)
[2022-06-30 08:40] LABS: ACTIVATED PTT 32.8 SECONDS (25.2-36.5)
[2022-06-30 08:55] LABS: ALBUMIN 2.7 g/dl (3.4-5.0); BLOOD UREA NITROGEN 23.8 mg/dL (7-18); CALCIUM 8.6 mg/dL (8.5-10.1)
[2022-06-30 08:58] LABS: CREATININE 0.8 mg/dL (0.55-1.3); PHOSPHOROUS 2.6 mg/dL (2.5-4.9)
[2022-06-30 08:59] LABS: BILIRUBIN,TOTAL 0.7 mg/dL (0.2-1); TOT PROT 6.4 g/dl (6.4-8.2)
[2022-06-30] MEDS: ACETAMINOPHEN 325 MG TABLET (FP) PO PRN ×2 (09:45→17:45)
[2022-06-30] MEDS: APIXABAN 5 MG TABLET PO SCH ×2 (09:45→21:13)
[2022-06-30] MEDS: PANTOPRAZOLE 40 MG TABLET PO SCH (09:45)
[2022-06-30] MEDS: LOSARTAN POTASSIUM 25 MG TABLET PO SCH (09:45)
[2022-06-30] MEDS ORDERED: AMIODARONE HCL 200 MG TABLET PO SCH (10:00)
[2022-06-30] MEDS ORDERED: FUROSEMIDE 40 MG TABLET (FP) PO SCH (10:00)
[2022-06-30] MEDS ORDERED: metoPROLOL SUCCINATE 25 MG TAB.SR.24H (FP) PO SCH (10:00)
[2022-07-01] MEDS: ACETAMINOPHEN 325 MG TABLET (FP) PO PRN ×2 (03:26→10:11)
[2022-07-01] MEDS: FUROSEMIDE 40 MG TABLET (FP) PO SCH ×3 (06:05→15:06)
[2022-07-01] MEDS: INSULIN SLIDING SCALE (NOVOLOG) 1 VIAL SQ SCH ×2 (06:07→12:52)
[2022-07-01 08:15] LABS: CALCIUM 8.7 mg/dL (8.5-10.1)
[2022-07-01 08:16] LABS: ALBUMIN 2.6 g/dl (3.4-5.0); MAGNESIUM 1.8 mg/dL (1.8-2.4)
[2022-07-01 08:19] LABS: CREATININE 0.7 mg/dL (0.55-1.3); PHOSPHOROUS 2.8 mg/dL (2.5-4.9)
[2022-07-01 08:21] LABS: TOT PROT 6.3 g/dl (6.4-8.2)
[2022-07-01] MEDS: LOSARTAN POTASSIUM 25 MG TABLET PO SCH (10:11)
[2022-07-01] MEDS: APIXABAN 5 MG TABLET PO SCH (10:11)
[2022-07-01] MEDS: PANTOPRAZOLE 40 MG TABLET PO SCH (10:11)
[2022-07-01] MEDS ORDERED: POTASSIUM CHLORIDE TABS 20 MEQ TABLET.ER (FP) PO ONE (11:30)
[2022-07-01 14:35] VITALS: BP 104/49; PULSE 75; RESP 18; TEMP 98.3
== END 2022-07-01 18:43 | disposition home or self-care (01) ==
LOC: INTOOBSV 13:31 → UNDOADMOB 13:31 → J8W 13:31 → J4W 21:29 → J8W 21:29 → J4W 06-30 14:30
PROVIDERS: ADMIT Internal Medicine; ATTEND Nurse Practitioner Acute Care
PROC: 3E0337Z Introduction of Electrolytic and Water Balance Substance into Peripheral Vein, Percutaneous Approach (ICD-10-PCS; principal; 2022-06-30)
DX: I46.9 Cardiac arrest, cause unspecified (principal); I11.0 Hypertensive heart disease with heart failure; I50.9 Heart failure, unspecified; I48.91 Unspecified atrial fibrillation; Z99.81 Dependence on supplemental oxygen; K21.9 Gastro-esophageal reflux disease without esophagitis; Z86.16 Personal history of COVID-19; J30.2 Other seasonal allergic rhinitis
CPT/HCPCS: 36415; 71045-TC-FY; 80053; 82962; 83036; 83735; 83880; 84100; 84443; 84479; 85025; 85610; 85730; 93005; 93010; 96360; 97116-GP; 97162-GP; C9803-CS; G0378; U0003; U0005

== ENCOUNTER → 2024-02-17 | Day surgery (SDC) | payer OTHER | END | disposition home or self-care (01) | LOC: FRADUS-SUR 13:05 | PROVIDERS: ATTEND Specialist | PROC: 0HBT3ZX Excision of Right Breast, Percutaneous Approach, Diagnostic (ICD-10-PCS; principal; 2024-02-17) | DX: N60.11 Diffuse cystic mastopathy of right breast (principal); N64.89 Other specified disorders of breast; N63.10 Unspecified lump in the right breast, unspecified quadrant | CPT/HCPCS: 19083; 77065-TC; 87899; 88305-TC; A4648 ==